=== PATIENT | male | born 1960 | race Caucasian/White ===

== ENCOUNTER → 2017-03-09 | Outpatient (REF) ==
[~2017-03-09] MED LIST: AMBIEN 10MG10 MG PO; BENADRYL50 MG PO; CEFTIN500 MG PO; CIPRO 500MG TA500 MG PO; COLACE 100100 MG/CAP PO; DIOVAN320 MG PO; FLEXERIL 1010 MG/TAB PO; FLOMAX 0.40.4 MG/CAP; GLUCOPHAGE500 MG/TAB PO; LAMICTAL XR200 MG PO; MIRALAX119G PO; NAPROSYN500 MG PO; NIASPAN1000 MG PO; NORCO 325 MG-51 TAB PO; PERCOCET 325 MG1 TA2 PO; PYRIDIUM 100MG100 MG PO; ULTRAM 50MG TAB50 MG PO; VITAMIN B122500 MCG SL; VITAMIN D 1001000 IU PO
[2017-03-09 20:03] LABS: PSA-TOTAL 6.54 ng/mL (0-4); THYROID STIMULATING HORMONE 2.24 uIU/mL (0.465-4.680)
== END ==
LOC: ZLAB.WCH 18:34
PROVIDERS: Internal Medicine
DX: Z01.89 Encounter for other specified special examinations (principal)
CPT/HCPCS: G0103

== ENCOUNTER → 2017-11-12 | Outpatient (REF) | LOC: ZLAB.WCH 14:17 | DX: Z01.89 Encounter for other specified special examinations (principal) | CPT/HCPCS: G0103 ==

== ENCOUNTER → 2017-11-15 | Outpatient (REF) | LOC: ZLAB.WCH 15:58 | DX: Z01.89 Encounter for other specified special examinations (principal) ==

== ENCOUNTER 2018-03-15 12:10 | Day surgery (SDC) | payer MEDICAID ==
[~2018-03-15] VITALS: Ht 190.5 cm; Wt 198.4 kg
[2018-03-15 12:59] VITALS: BP 152/85; PULSE 70; TEMP 98.5
[2018-03-15] MEDS ORDERED: FLOMAX 0.40.4 MG/CAP PO (13:09)
[2018-03-15] MEDS ORDERED: MELATONIN5 M1 SL (13:10)
[2018-03-15 15:40] VITALS: BP 119/66; PULSE 56; TEMP 97.5
[2018-03-15 15:43] VITALS: TEMP 97.5
[2018-03-15 15:55] VITALS: BP 118/71; PULSE 69
[2018-03-15 16:10] VITALS: BP 113/69; PULSE 57
== END 2018-03-15 16:38 | disposition home or self-care (01) ==
LOC: SDCO 12:10
DX: N20.0 Calculus of kidney (principal); Z87.442 Personal history of urinary calculi; R35.1 Nocturia; E11.9 Type 2 diabetes mellitus without complications; Z87.891 Personal history of nicotine dependence; G47.33 Obstructive sleep apnea (adult) (pediatric); I10 Essential (primary) hypertension; N41.9 Inflammatory disease of prostate, unspecified
CPT/HCPCS: C1769; C2617; J0330; J0690; J1100; J1885; J2405; J2704; J2765; J3010; J7120; Q9967

== ENCOUNTER → 2018-07-26 | Outpatient (REF) ==
[~2018-07-26] MED LIST changes: +FLOMAX 0.40.4 MG/CAP PO; +MELATONIN5 M1 SL
== END ==
LOC: ZLAB.WCH 17:08
DX: Z01.89 Encounter for other specified special examinations (principal)

== ENCOUNTER 2019-11-16 09:35 | Emergency (ER) | payer MEDICAID ==
[~2019-11-16] VITALS: Ht 190.5 cm; Wt 193.2 kg
[2019-11-16 09:57] VITALS: TEMP 98.3
[2019-11-16 10:52] LABS: BASO # 0.1 (0.0-0.2); BASO % 0.6 % (0.0-2.0); EOS # 0.1 (0.0-0.7); EOS % 1.1 % (0-4.0); GRAN # 5.6 (1.4-6.5); GRAN % 71.7 % (42.2-75.2); HEMATOCRIT 47.8 % (42.0-52.0); HEMOGLOBIN 15.9 g/dl (13.5-18.0); LYMPH # 1.4 (1.2-3.4); LYMPH % 18.1 % (20.0-51.0); MEAN CELL VOLUME 92 fl (80.0-100.0); MEAN CORPUSCULAR HEMOGLOBIN 31 pg (27.0-31.0); MEAN CORPUSCULAR HGB CONC 33 g/dl (33.0-37.0); MEAN PLATELET VOLUME 9.5 fl (7.4-10.4); MONO # 0.6 (0.1-0.6); MONO % 8.1 % (1.7-9.3); PLATELET COUNT 147 K/mm3 (130-400); REDCELL DISTRIBUTION WIDTH-CV 13.5 % (11.5-14.5)
[2019-11-16 11:07] LABS: BILIRUBIN,TOTAL 1.7 mg/dL (0.0-1.0); C-REACTIVE PROTEIN 1.3 mg/dL (0.0-0.9); CALCIUM 9.5 mg/dL (8.4-10.2); CREATININE, serum 0.96 (0.66-1.25); POTASSIUM 4.4 mmol/L (3.4-5.0); TOTAL PROTEIN 7.5 gm/dL (6.4-8.2)
[2019-11-16] MEDS ORDERED: DOXYCYCLINE 10100 MG PO (11:53)
[2019-11-16 12:10] VITALS: BP 133/79; PULSE 78
== END 2019-11-16 12:10 | disposition home or self-care (01) ==
LOC: COL.ER 09:35
PROVIDERS: Physician Assistant
DX: L03.115 Cellulitis of right lower limb (principal); F17.290 Nicotine dependence, other tobacco product, uncomplicated; Z87.442 Personal history of urinary calculi

== ENCOUNTER 2019-12-20 14:36 | Inpatient (IN) | payer MEDICAID ==
[~2019-12-20] VITALS: Ht 190.5 cm; Wt 208.1 kg
[~2019-12-20 14:36] MED LIST changes: +DOXYCYCLINE 10100 MG PO
[2019-12-20 15:36] LABS: BASO % 0.4 % (0.0-2.0); EOS % 0.2 % (0-4.0); GRAN # 8.1 (1.4-6.5); GRAN % 87.8 % (42.2-75.2); HEMATOCRIT 47.1 % (42.0-52.0); HEMOGLOBIN 15.6 g/dl (13.5-18.0); LYMPH # 0.6 (1.2-3.4); LYMPH % 6.1 % (20.0-51.0); MEAN CELL VOLUME 93 fl (80.0-100.0); MEAN CORPUSCULAR HEMOGLOBIN 31 pg (27.0-31.0); MEAN CORPUSCULAR HGB CONC 33 g/dl (33.0-37.0); MEAN PLATELET VOLUME 9.8 fl (7.4-10.4); MONO # 0.5 (0.1-0.6); PLATELET COUNT 131 K/mm3 (130-400); RED BLOOD COUNT 5.08 M/mm3 (4.20-5.60); REDCELL DISTRIBUTION WIDTH-CV 13.3 % (11.5-14.5)
[2019-12-20 15:44] LABS: COLLECTION METHOD CLEAN CATCH
[2019-12-20 15:49] LABS: ALBUMIN 3.7 gm/dL (3.5-5.0); BILIRUBIN,TOTAL 1.8 mg/dL (0.0-1.0); C-REACTIVE PROTEIN 4.1 mg/dL (0.0-0.9); CALCIUM 9.1 mg/dL (8.4-10.2); CREATININE, serum 1.33 (0.66-1.25); POTASSIUM 3.7 mmol/L (3.4-5.0); TOTAL PROTEIN 7.2 gm/dL (6.4-8.2)
[2019-12-20 15:53] LABS: BUDDING YEAST Present /hpf; MUCOUS Present /lpf; PH 9 (5-8); SQUAMOUS EPITHELIAL 0-2 /hpf; URINE APPEARANCE Cloudy; URINE BACTERIA Rare /hpf; URINE BILIRUBIN Negative (NEGATIVE); URINE BLOOD 1+ (NEGATIVE); URINE COLOR Yellow; URINE GLUCOSE Negative (NEGATIVE); URINE KETONE Negative (NEGATIVE); URINE LEUKOCYTE ESTERASE 3+ (NEGATIVE); URINE NITRATE Positive (NEGATIVE); URINE PROTEIN(semi-quant) Negative (NEGATIVE); URINE RBC 0-2 /hpf; URINE UROBILINOGEN Negative (NEGATIVE)
[2019-12-20] MEDS ORDERED: DEMADEX10 MG PO (17:43)
[2019-12-20 18:42] VITALS: BP 134/70; PULSE 99; TEMP 98.6
[2019-12-20] MEDS ORDERED: RESTORIL 1515 MG/CAP PO (18:49)
[2019-12-20] MEDS ORDERED: KLOR-CON M2020 MEQ PO (18:51)
[2019-12-20 19:18] VITALS: BP 125/52; PULSE 96; TEMP 100.2
[2019-12-21] VITALS (7 sets, daily range): BP systolic 114–145; BP diastolic 40–91; PULSE 74–95; TEMP 97.9–98.8
[2019-12-21 07:29] LABS: ALBUMIN 3.2 gm/dL (3.5-5.0); BILIRUBIN,TOTAL 1.1 mg/dL (0.0-1.0); CALCIUM 8.8 mg/dL (8.4-10.2); CREATININE, serum 1.19 (0.66-1.25); POTASSIUM 3.8 mmol/L (3.4-5.0); TOTAL PROTEIN 6.6 gm/dL (6.4-8.2)
[2019-12-21 07:44] LABS: BASO % 0.5 % (0.0-2.0); EOS % 0.3 % (0-4.0); GRAN # 4.9 (1.4-6.5); GRAN % 77.2 % (42.2-75.2); HEMOGLOBIN 14.9 g/dl (13.5-18.0); LYMPH # 0.7 (1.2-3.4); LYMPH % 11.6 % (20.0-51.0); MEAN CELL VOLUME 92 fl (80.0-100.0); MEAN CORPUSCULAR HEMOGLOBIN 31 pg (27.0-31.0); MEAN CORPUSCULAR HGB CONC 33 g/dl (33.0-37.0); MEAN PLATELET VOLUME 10.2 fl (7.4-10.4); MONO # 0.6 (0.1-0.6); MONO % 10.1 % (1.7-9.3); PLATELET COUNT 111 K/mm3 (130-400); RED BLOOD COUNT 4.88 M/mm3 (4.20-5.60); REDCELL DISTRIBUTION WIDTH-CV 13.4 % (11.5-14.5)
[2019-12-21 16:02] LABS: COLLECTION METHOD CLEAN CATCH
[2019-12-21 16:11] LABS: BUDDING YEAST Present /hpf; PH 7 (5-8); SQUAMOUS EPITHELIAL 0-2 /hpf; URINE APPEARANCE Cloudy; URINE BACTERIA Rare /hpf; URINE BILIRUBIN Negative (NEGATIVE); URINE BLOOD 1+ (NEGATIVE); URINE COLOR Yellow; URINE GLUCOSE Negative (NEGATIVE); URINE KETONE Negative (NEGATIVE); URINE LEUKOCYTE ESTERASE 3+ (NEGATIVE); URINE NITRATE Negative (NEGATIVE); URINE PROTEIN(semi-quant) Negative (NEGATIVE); URINE UROBILINOGEN Negative (NEGATIVE)
[2019-12-21 23:46] LABS: PARTIAL THROMBOPLASTIN TIME 31.2 SECONDS (26.0-37.0)
[2019-12-22 03:23] VITALS: BP 138/69; PULSE 80; TEMP 98.5
[2019-12-22 07:27] VITALS: BP 139/74; PULSE 72; TEMP 98.2
[2019-12-22 07:40] LABS: BASO % 0.4 % (0.0-2.0); EOS # 0.2 (0.0-0.7); EOS % 1.8 % (0-4.0); GRAN % 72.8 % (42.2-75.2); HEMATOCRIT 43.8 % (42.0-52.0); HEMOGLOBIN 14.6 g/dl (13.5-18.0); LYMPH # 1.2 (1.2-3.4); LYMPH % 14.9 % (20.0-51.0); MEAN CELL VOLUME 91 fl (80.0-100.0); MEAN CORPUSCULAR HEMOGLOBIN 31 pg (27.0-31.0); MEAN CORPUSCULAR HGB CONC 33 g/dl (33.0-37.0); MONO # 0.8 (0.1-0.6); MONO % 9.9 % (1.7-9.3); PLATELET COUNT 110 K/mm3 (130-400); RED BLOOD COUNT 4.79 M/mm3 (4.20-5.60); REDCELL DISTRIBUTION WIDTH-CV 13.2 % (11.5-14.5)
[2019-12-22 07:48] LABS: CALCIUM 8.9 mg/dL (8.4-10.2); CREATININE, serum 0.95 (0.66-1.25); INR 1.2 (0.8-3.0); POTASSIUM 3.9 mmol/L (3.4-5.0); PROTHROMBIN TIME 13.4 SECONDS (9.7-12.8)
[2019-12-22 11:23] VITALS: BP 117/82; PULSE 77; TEMP 98.4
[2019-12-22 16:54] VITALS: BP 138/76; PULSE 74; TEMP 97.7
[2019-12-22 21:17] VITALS: BP 140/83; PULSE 80; TEMP 98
[2019-12-23 01:32] VITALS: BP 144/89; PULSE 87; TEMP 97.5
[2019-12-23 04:58] VITALS: BP 133/81; PULSE 70; TEMP 97.6
[2019-12-23 06:57] LABS: BASO % 0.5 % (0.0-2.0); EOS # 0.2 (0.0-0.7); EOS % 2.9 % (0-4.0); GRAN % 63.9 % (42.2-75.2); HEMATOCRIT 45.2 % (42.0-52.0); HEMOGLOBIN 14.8 g/dl (13.5-18.0); LYMPH # 1.4 (1.2-3.4); LYMPH % 21.7 % (20.0-51.0); MEAN CELL VOLUME 93 fl (80.0-100.0); MEAN CORPUSCULAR HEMOGLOBIN 30 pg (27.0-31.0); MEAN CORPUSCULAR HGB CONC 33 g/dl (33.0-37.0); MEAN PLATELET VOLUME 10.1 fl (7.4-10.4); MONO # 0.7 (0.1-0.6); MONO % 10.7 % (1.7-9.3); PLATELET COUNT 120 K/mm3 (130-400); RED BLOOD COUNT 4.87 M/mm3 (4.20-5.60); REDCELL DISTRIBUTION WIDTH-CV 13.3 % (11.5-14.5)
[2019-12-23 07:12] LABS: ALBUMIN 3.5 gm/dL (3.5-5.0); BILIRUBIN,TOTAL 0.6 mg/dL (0.0-1.0); CALCIUM 9.1 mg/dL (8.4-10.2); CREATININE, serum 1.01 (0.66-1.25); POTASSIUM 4.1 mmol/L (3.4-5.0); TOTAL PROTEIN 7.1 gm/dL (6.4-8.2)
[2019-12-23 07:14] LABS: INR 1.2 (0.8-3.0)
[2019-12-23 07:27] VITALS: BP 128/77; PULSE 68; TEMP 97.6
[2019-12-23 11:53] VITALS: BP 135/75; PULSE 69; TEMP 98
[2019-12-23 17:10] VITALS: BP 122/74; PULSE 73; TEMP 97.8
[2019-12-23 20:00] VITALS: BP 130/64; PULSE 74; TEMP 98.4
[2019-12-24] VITALS (7 sets, daily range): BP systolic 123–150; BP diastolic 53–79; PULSE 62–83; TEMP 97.5–98.4
[2019-12-24 07:43] LABS: INR 1.2 (0.8-3.0); PROTHROMBIN TIME 13.7 SECONDS (9.7-12.8)
[2019-12-25 03:05] VITALS: BP 134/76; PULSE 78; TEMP 98
[2019-12-25 07:07] VITALS: BP 118/72; PULSE 88; TEMP 98.4
[2019-12-25 07:10] LABS: BASO # 0.1 (0.0-0.2); BASO % 0.6 % (0.0-2.0); EOS # 0.2 (0.0-0.7); EOS % 2.7 % (0-4.0); GRAN # 5.3 (1.4-6.5); GRAN % 63.4 % (42.2-75.2); HEMATOCRIT 46.4 % (42.0-52.0); HEMOGLOBIN 15.4 g/dl (13.5-18.0); LYMPH # 1.9 (1.2-3.4); LYMPH % 22.8 % (20.0-51.0); MEAN CELL VOLUME 94 fl (80.0-100.0); MEAN CORPUSCULAR HEMOGLOBIN 31 pg (27.0-31.0); MEAN CORPUSCULAR HGB CONC 33 g/dl (33.0-37.0); MEAN PLATELET VOLUME 10.3 fl (7.4-10.4); MONO # 0.8 (0.1-0.6); MONO % 9.7 % (1.7-9.3); PLATELET COUNT 173 K/mm3 (130-400); RED BLOOD COUNT 4.96 M/mm3 (4.20-5.60); REDCELL DISTRIBUTION WIDTH-CV 13.6 % (11.5-14.5)
[2019-12-25 07:19] LABS: INR 1.6 (0.8-3.0); PROTHROMBIN TIME 17.8 SECONDS (9.7-12.8)
[2019-12-25 07:26] LABS: CALCIUM 9.3 mg/dL (8.4-10.2); CREATININE, serum 1.32 (0.66-1.25); POTASSIUM 3.9 mmol/L (3.4-5.0)
[2019-12-25 11:30] VITALS: BP 123/67; PULSE 84; TEMP 98.4
[2019-12-25 16:41] VITALS: BP 140/74; PULSE 69; TEMP 98.2
[2019-12-25 20:09] VITALS: BP 120/54; PULSE 76; TEMP 98.6
[2019-12-25 23:11] VITALS: BP 124/57; PULSE 65; TEMP 97.7
[2019-12-26 04:13] VITALS: BP 121/55; PULSE 70; TEMP 97.6
[2019-12-26 06:08] LABS: BASO # 0.1 (0.0-0.2); BASO % 0.6 % (0.0-2.0); EOS # 0.2 (0.0-0.7); EOS % 2.6 % (0-4.0); GRAN # 5.6 (1.4-6.5); GRAN % 65.6 % (42.2-75.2); HEMATOCRIT 46.5 % (42.0-52.0); HEMOGLOBIN 15.4 g/dl (13.5-18.0); LYMPH # 1.9 (1.2-3.4); LYMPH % 21.6 % (20.0-51.0); MEAN CELL VOLUME 93 fl (80.0-100.0); MEAN CORPUSCULAR HEMOGLOBIN 31 pg (27.0-31.0); MEAN CORPUSCULAR HGB CONC 33 g/dl (33.0-37.0); MEAN PLATELET VOLUME 9.9 fl (7.4-10.4); MONO # 0.8 (0.1-0.6); MONO % 9.1 % (1.7-9.3); PLATELET COUNT 162 K/mm3 (130-400); RED BLOOD COUNT 4.98 M/mm3 (4.20-5.60); REDCELL DISTRIBUTION WIDTH-CV 13.7 % (11.5-14.5)
[2019-12-26 06:11] LABS: INR 2.2 (0.8-3.0); PROTHROMBIN TIME 24.4 SECONDS (9.7-12.8)
[2019-12-26 06:15] LABS: CALCIUM 9.4 mg/dL (8.4-10.2); CREATININE, serum 1.15 (0.66-1.25); POTASSIUM 4.5 mmol/L (3.4-5.0)
[2019-12-26 07:38] VITALS: BP 135/76; PULSE 66; TEMP 97.9
[2019-12-26 11:47] VITALS: BP 143/74; PULSE 87; TEMP 98
[2019-12-26 16:32] VITALS: BP 153/78; PULSE 79; TEMP 97.7
[2019-12-26 19:47] VITALS: BP 108/57; PULSE 81; TEMP 98.5
[2019-12-26 20:25] LABS: COLLECTION METHOD CLEAN CATCH
[2019-12-26 20:32] LABS: PH 6 (5-8); SQUAMOUS EPITHELIAL 0-2 /hpf; URINE APPEARANCE Clear; URINE BACTERIA None Seen /hpf; URINE BILIRUBIN Negative (NEGATIVE); URINE BLOOD 2+ (NEGATIVE); URINE COLOR Straw; URINE GLUCOSE Negative (NEGATIVE); URINE KETONE Negative (NEGATIVE); URINE LEUKOCYTE ESTERASE Negative (NEGATIVE); URINE NITRATE Negative (NEGATIVE); URINE PROTEIN(semi-quant) Negative (NEGATIVE); URINE RBC >50 /hpf; URINE UROBILINOGEN Negative (NEGATIVE)
[2019-12-27 00:45] VITALS: BP 106/58; PULSE 70; TEMP 98
[2019-12-27 05:16] VITALS: BP 111/48; PULSE 65; TEMP 97.9
[2019-12-27 07:03] LABS: INR 2.4 (0.8-3.0); PROTHROMBIN TIME 27.6 SECONDS (9.7-12.8)
[2019-12-27 08:36] VITALS: BP 137/74; PULSE 73; TEMP 97.9
[2019-12-27] MEDS ORDERED: COUMADIN 5MG5 MG/TAB PO (12:53)
[2019-12-27] MEDS ORDERED: Desenex/Lotrimin AF TP (12:53)
[2019-12-27] MEDS ORDERED: DEMADEX10 MG PO (12:53)
[2019-12-27] MEDS ORDERED: RESTORIL 1515 MG/CAP PO (12:54)
[2019-12-27] MEDS ORDERED: OMNICEF 300MG300 MG PO (12:55)
[2019-12-27] MEDS ORDERED: DIFLUCAN200 MG PO (12:55)
[2019-12-27 13:02] VITALS: BP 146/83; PULSE 78; TEMP 97.8
== END 2019-12-27 15:35 | disposition home or self-care (01) | DRG 872 ==
LOC: COL.ER 14:36 → MEDICAL 17:03
PROVIDERS: Emergency Medicine; Internal Medicine; Physician Assistant; ADMIT Student in an Organized Health Care Education/Training Program
DX: A41.89 Other specified sepsis (principal); N39.0 Urinary tract infection, site not specified; I82.401 Acute embolism and thrombosis of unspecified deep veins of right lower extremity; Z68.43 Body mass index [BMI] 50.0-59.9, adult; N18.9 Chronic kidney disease, unspecified; B96.89 Other specified bacterial agents as the cause of diseases classified elsewhere; E66.01 Morbid (severe) obesity due to excess calories; K80.20 Calculus of gallbladder without cholecystitis without obstruction; E80.6 Other disorders of bilirubin metabolism; F17.210 Nicotine dependence, cigarettes, uncomplicated; F31.9 Bipolar disorder, unspecified; I12.9 Hypertensive chronic kidney disease with stage 1 through stage 4 chronic kidney disease, or unspecified chronic kidney disease; D69.6 Thrombocytopenia, unspecified; N20.0 Calculus of kidney; R65.20 Severe sepsis without septic shock
CPT/HCPCS: 99222-AI; 99231-AI; 99232-AI; 99233-AI; 99239; J0696; J1644; J7030; Q9967

== ENCOUNTER → 2020-11-25 | Outpatient (CLI) | payer MEDICAID ==
[~2020-11-25] MED LIST changes: +COUMADIN 5MG5 MG/TAB PO; +DEMADEX10 MG PO; +DESENEX TP; +DIFLUCAN200 MG PO; +Desenex/Lotrimin AF TP; +KLOR-CON M2020 MEQ PO; +LEVAQUIN 5500 MG/TA1 PO; +OMNICEF 300MG300 MG PO; +PROAIR HFA0.09 MG/AC IH; +RESTORIL 1515 MG/CAP PO
== END ==
LOC: COL.RAD 13:39
DX: N18.30 Chronic kidney disease, stage 3 unspecified (principal); N32.89 Other specified disorders of bladder

== ENCOUNTER → 2020-12-06 | Outpatient (CLI) | payer MEDICAID | LOC: COL.VAS 11:23 | DX: R09.89 Other specified symptoms and signs involving the circulatory and respiratory systems (principal) ==

== ENCOUNTER 2020-12-27 07:10 | Day surgery (SDC) | payer MEDICAID ==
[~2020-12-27] VITALS: Ht 190.5 cm; Wt 207.6 kg
[~2020-12-27 07:10] MED LIST changes: -DESENEX TP; -LEVAQUIN 5500 MG/TA1 PO; -PROAIR HFA0.09 MG/AC IH
[2020-12-27] MEDS ORDERED: LEVAQUIN 5500 MG/TA1 PO (08:17)
[2020-12-27] MEDS ORDERED: PROAIR HFA0.09 MG/AC IH (08:17)
[2020-12-27 08:18] VITALS: BP 153/95; PULSE 101; TEMP 98.4
[2020-12-27 10:30] VITALS: BP 133/82; PULSE 82; TEMP 97.4
--- NOTE | 2020-12-27 10:30 | NUR ---
Patient arrives to [facility] via cart, accompanied by DATA SUPPORT SPECIALIST Salena. He is alert and oriented, sitting up in bed. PIV to TKO. Monitoring is applied - VSS and WNL on room air. He denies any pain or nausea. He is offered and receives juice and a muffin to eat.
[2020-12-27 10:45] VITALS: BP 131/70; PULSE 85
--- NOTE | 2020-12-27 10:45 | NUR ---
VSS on room air. Denies pain, nausea, or need. Has ate his muffin and drank his juice. Tolerating PO well.
--- NOTE | 2020-12-27 11:00 | NUR ---
Patient ambulates to the restroom with use of personal walker. Gait steady. Voids and returns to room.
[2020-12-27 11:02] VITALS: TEMP 98.2
[2020-12-27 11:10] VITALS: BP 154/80; PULSE 87
--- NOTE | 2020-12-27 11:10 | NUR ---
Patient is resting comfortably in room. VSS on room air. He has met discharge criteria. Will return with paperwork.
--- NOTE | 2020-12-27 11:38 | NUR ---
Patient has met discharge criteria. Discharge instructions are discussed. He denies any questions and verbalizes understanding. PIV is removed with catheter intact and hemostasis achieved. Patient changes to his clothing independently. He is escorted to the exit via wheelchair, where the van service meets him for a ride home. He is discharged to home at 1138.
== END 2020-12-27 11:38 | disposition home or self-care (01) ==
LOC: SDCO 07:10
DX: N20.2 Calculus of kidney with calculus of ureter (principal); R97.20 Elevated prostate specific antigen [PSA]; J45.909 Unspecified asthma, uncomplicated; N18.30 Chronic kidney disease, stage 3 unspecified; E11.22 Type 2 diabetes mellitus with diabetic chronic kidney disease; I12.9 Hypertensive chronic kidney disease with stage 1 through stage 4 chronic kidney disease, or unspecified chronic kidney disease; G47.10 Hypersomnia, unspecified; G47.33 Obstructive sleep apnea (adult) (pediatric); E11.42 Type 2 diabetes mellitus with diabetic polyneuropathy; I87.2 Venous insufficiency (chronic) (peripheral); M17.0 Bilateral primary osteoarthritis of knee; E66.9 Obesity, unspecified; E88.81 Metabolic syndrome and other insulin resistance; M54.9 Dorsalgia, unspecified; G89.29 Other chronic pain; E55.9 Vitamin D deficiency, unspecified; Z79.899 Other long term (current) drug therapy; Z68.43 Body mass index [BMI] 50.0-59.9, adult; Z87.891 Personal history of nicotine dependence
CPT/HCPCS: C1769; C2617; J0690; J1100; J2405; J2704; J3010; J7120; Q9967

== ENCOUNTER 2021-01-07 11:54 | Day surgery (SDC) | payer MEDICAID ==
[~2021-01-07] VITALS: Ht 190.5 cm; Wt 206.5 kg
[~2021-01-07 11:54] MED LIST changes: +LEVAQUIN 5500 MG/TA1 PO; +PROAIR HFA0.09 MG/AC IH
[2021-01-07 12:48] VITALS: BP 137/70; PULSE 104; TEMP 98.3
[2021-01-07] MEDS ORDERED: RESTORIL 1515 MG/CAP PO (12:57)
[2021-01-07] MEDS ORDERED: DEMADEX10 MG PO (12:58)
[2021-01-07] MEDS ORDERED: NORCO 325 MG-51 TAB PO (13:00)
--- NOTE | 2021-01-07 13:00 | NUR ---
TO RM AT 1211- CALL LIGHT IN REACH WILL CALL FOR RIDE HOME
--- NOTE | 2021-01-07 13:18 | NUR ---
DR KNUTSON INTO SEE PATIENT
--- NOTE | 2021-01-07 14:45 | NUR ---
PATIENT GETTING DRESSED.
--- NOTE | 2021-01-07 15:06 | NUR ---
DISCHARGED PER WC BY NURSING STAFF TO PRIVATE CAR IN CARE OF ANTONI PATEL.
== END 2021-01-07 15:11 | disposition home or self-care (01) ==
LOC: SDCO 11:54
DX: N20.1 Calculus of ureter (principal); J45.909 Unspecified asthma, uncomplicated; G89.29 Other chronic pain; M54.9 Dorsalgia, unspecified; I12.9 Hypertensive chronic kidney disease with stage 1 through stage 4 chronic kidney disease, or unspecified chronic kidney disease; E11.22 Type 2 diabetes mellitus with diabetic chronic kidney disease; N18.30 Chronic kidney disease, stage 3 unspecified; G47.33 Obstructive sleep apnea (adult) (pediatric); E11.42 Type 2 diabetes mellitus with diabetic polyneuropathy; Z79.4 Long term (current) use of insulin; Z79.899 Other long term (current) drug therapy

== ENCOUNTER 2021-06-09 15:15 | Inpatient (IN) | payer MEDICAID ==
[~2021-06-09] VITALS: Ht 190.5 cm; Wt 214.5 kg
[2021-06-09 15:49] LABS: COLLECTION METHOD CLEAN CATCH
[2021-06-09 16:03] LABS: PH 7 (5-8); SQUAMOUS EPITHELIAL None Seen /hpf (0-10); URINE APPEARANCE Cloudy (CLEAR/HAZY); URINE BACTERIA Rare (NONE SEEN); URINE BILIRUBIN Negative (NEGATIVE); URINE BLOOD 1+ (NEGATIVE); URINE COLOR Yellow (YELLOW); URINE GLUCOSE Negative (NEGATIVE); URINE KETONE Negative (NEGATIVE); URINE LEUKOCYTE ESTERASE 3+ (NEGATIVE); URINE NITRATE Negative (NEGATIVE); URINE PROTEIN(semi-quant) 1+ (NEGATIVE); URINE UROBILINOGEN Negative (NEGATIVE)
[2021-06-09 16:11] LABS: BASO % 0.4 % (0.0-2.0); EOS # 0.2 K/mm3 (0.0-0.7); EOS % 1.8 % (0-4.0); GRAN # 7.4 K/mm3 (1.4-6.5); GRAN % 67.4 % (42.2-75.2); HEMOGLOBIN 11.8 g/dl (13.5-18.0); LYMPH # 2.5 K/mm3 (1.2-3.4); LYMPH % 22.5 % (20.0-51.0); MEAN CELL VOLUME 92 fl (80.0-100.0); MEAN CORPUSCULAR HEMOGLOBIN 30 pg (27.0-31.0); MEAN CORPUSCULAR HGB CONC 33 g/dl (33.0-37.0); MEAN PLATELET VOLUME 9.2 fl (7.4-10.4); MONO # 0.8 K/mm3 (0.1-0.6); MONO % 7.2 % (1.7-9.3); PLATELET COUNT 177 K/mm3 (130-400); RED BLOOD COUNT 3.88 M/mm3 (4.20-5.60); REDCELL DISTRIBUTION WIDTH-CV 14.6 % (11.5-14.5)
[2021-06-09 16:12] LABS: HEMATOCRIT 35.8 % (42.0-52.0)
[2021-06-09 16:30] LABS: ALBUMIN 3.8 gm/dL (3.4-4.8); CALCIUM 9.9 mg/dL (8.4-10.2); CREATININE, serum 3.77 mg/dL (0.72-1.25); POTASSIUM 5.5 mmol/L (3.5-4.5); TOTAL PROTEIN 8.2 gm/dL (6.2-8.1)
[2021-06-09 16:35] LABS: TROPONIN-I 0.012 ng/mL (0.00-0.033)
[2021-06-09] MEDS ORDERED: FLOMAX 0.40.4 MG/CAP PO (18:56)
--- NOTE | 2021-06-09 21:17 | NUR ---
PT STATED THAT HE HAS A HISTORY OF MANIC BIPOLOAR DISORDER THAT HAD PREVIOUS SUICIDE ATTEMPT FROM 1991. PT IS NO LONGER ON MEDICATIONS AND HAS BEEN STABILIZED. PT STATED WAS ADDICTED TO [facility] YEARS AGO AND IS A RECOVERING ADDICT. PT IS OK WITH RECEIVED PAIN MEDICATIONS HE DOES NOT FEAR THAT WILL MESS WITH HIS RECOVERY.
[2021-06-09 21:22] VITALS: BP 164/90; PULSE 102; TEMP 98.5
[2021-06-10] VITALS (7 sets, daily range): BP systolic 114–151; BP diastolic 54–73; PULSE 80–110; TEMP 97.7–98.2
--- NOTE | 2021-06-10 01:42 | NUR ---
PT COMPLAINED OF WET BED, THIS RN AND AIDE CHANGED LINENS. LOOKED AT BROTHERS, NOTICED ABOUT 1 CM BLOOD CLOT. THIS RN CALLED DEDRA WHO STATED TO DO SOME MANUAL IRRIGATION TO ENSURE NO FURTHER BLOOD CLOTS AND ASKED IF PT WAS IN ANY PAIN, THIS RN STATED PT IS DENYING PAIN.
--- NOTE | 2021-06-10 02:09 | NUR ---
IRRIGATED BROTHERS. GOT 1500 ML OF URINE IN RETURN. NO FURTHER BLOOD CLOTS. URINE IS A DARK YELLOW WITH SOME SEDIMENT IN URINE. THIS RN TRIED TO POSITION PT TO OPTIMIZE BEST FLOW.
[2021-06-10 06:52] LABS: BASO % 0.3 % (0.0-2.0); EOS # 0.1 K/mm3 (0.0-0.7); EOS % 1.1 % (0-4.0); GRAN # 8.3 K/mm3 (1.4-6.5); GRAN % 73.1 % (42.2-75.2); HEMOGLOBIN 10.8 g/dl (13.5-18.0); LYMPH # 2.1 K/mm3 (1.2-3.4); LYMPH % 18.7 % (20.0-51.0); MEAN CELL VOLUME 93 fl (80.0-100.0); MEAN CORPUSCULAR HEMOGLOBIN 31 pg (27.0-31.0); MEAN CORPUSCULAR HGB CONC 33 g/dl (33.0-37.0); MEAN PLATELET VOLUME 9.8 fl (7.4-10.4); MONO # 0.7 K/mm3 (0.1-0.6); MONO % 6.3 % (1.7-9.3); PLATELET COUNT 164 K/mm3 (130-400); RED BLOOD COUNT 3.51 M/mm3 (4.20-5.60); REDCELL DISTRIBUTION WIDTH-CV 14.5 % (11.5-14.5)
[2021-06-10 06:58] LABS: HEMATOCRIT 32.8 % (42.0-52.0)
[2021-06-10 07:10] LABS: CALCIUM 9.6 mg/dL (8.4-10.2); CREATININE, serum 3.66 mg/dL (0.72-1.25); POTASSIUM 5.3 mmol/L (3.5-4.5)
[2021-06-10 08:09] LABS: CREATININE, serum 3.66 mg/dL (0.72-1.25); FRACTIONAL EXCRETION OF NA+ 7.7 %
--- NOTE | 2021-06-10 08:15 | NUR ---
Patient resting in bed. He is NPO. Patient provided with mouth swabs for comfort. He took flomax with small sip of water. Mendoza to DD with red tinged output, sediment noted. Patient reports his pain comes and goes, he does have chronic knee pain, offered ice pack & elevation. he was not interested. He is awaiting plan of care. Will monitor.
--- NOTE | 2021-06-10 11:50 | NUR ---
MARIBEL met with the patient to discuss discharge plan. The patient lives alone in [place]. He reports independence with ADLs and has a rollator and cane. He states that he has a field care coordinator from [address] [place] [address] and was approved seven hours a week. The patient's PCP is Dr. Case Flores and he receives his medications from [facility]. He reports no difficulties obtaining his meds. The patient does not have a DPOA-HC, but he was interested in completing one while here. MARIBEL provided the form. The patient designated his brother, Taco Ballesteros (ph#[phone]), and his friend, Abby Parada, as the alternate. Taco lives in [place]. MARIBEL and BRYANNA Rae, witnessed the patient's signature. MARIBEL provided the patient with the original and some copies. MARIBEL placed a copy in the patient's chart. The patient plans to return home upon discharge. He states that he will try and see if a neighbor can transport him home. If a neighbor cannot, he will need transport set up through his Medicaid or a taxi. SW to continue to follow. *Discharge plan: home*
--- NOTE | 2021-06-10 13:27 | NUR ---
Patient up to the bathroom, no BM. bladder did spasm & his montana leaked. pericare provided. Spoke to Paula Holliday patient pannus irritated. orders obtained. patient brushed his teeth & assisted with hygiene & fresh linens
--- NOTE | 2021-06-10 15:20 | NUR ---
Mendoza cares given. Pannus cleansed & powered applied. Interdry cloth applied. Feet cleased & lotion applied to feet. Scds BLE. Bandaid was removed from Right foot scab noted to top of foot, patient reports this has been there for weeks.
--- NOTE | 2021-06-10 16:44 | NUR ---
Patient to the Or with Or staff. Security drove bed to the Or. Patient continues to have bladder spasms & pericare provided as needed. He has been NPO all day. Will await his return
[2021-06-11 03:37] VITALS: BP 126/69; PULSE 110; TEMP 97.8
[2021-06-11 06:52] LABS: HEMOGLOBIN 10.5 g/dl (13.5-18.0); MEAN CELL VOLUME 93 fl (80.0-100.0); MEAN CORPUSCULAR HEMOGLOBIN 31 pg (27.0-31.0); MEAN CORPUSCULAR HGB CONC 33 g/dl (33.0-37.0); MEAN PLATELET VOLUME 9.5 fl (7.4-10.4); PLATELET COUNT 160 K/mm3 (130-400); RED BLOOD COUNT 3.43 M/mm3 (4.20-5.60); REDCELL DISTRIBUTION WIDTH-CV 14.3 % (11.5-14.5)
[2021-06-11 07:03] LABS: HEMATOCRIT 31.9 % (42.0-52.0)
[2021-06-11 07:04] LABS: CALCIUM 9.3 mg/dL (8.4-10.2); CREATININE, serum 3.85 mg/dL (0.72-1.25); POTASSIUM 5.7 mmol/L (3.5-4.5)
[2021-06-11 07:35] VITALS: BP 125/68; PULSE 82; TEMP 97.8
--- NOTE | 2021-06-11 09:15 | NUR ---
PT RESTING IN BED. MORNING MEDICATIONS GIVEN. SHIFT ASSESSMENT COMPLETED. DENIES ANY NEEDS AT THIS TIME. URINE IS YELLOW WITH SOME CLOTS. WILL CONTINUE TO MONITOR.
--- NOTE | 2021-06-11 11:36 | NUR ---
First visit from the locomotive firer. No needs right now.
[2021-06-11 11:59] VITALS: BP 138/75; PULSE 87; TEMP 98.3
[2021-06-11 16:00] VITALS: BP 146/76; PULSE 81; TEMP 97.9
[2021-06-11 19:52] VITALS: BP 148/63; PULSE 76; TEMP 98.1
--- NOTE | 2021-06-11 20:02 | NUR ---
PT LAYING IN BED, DENYING PAIN. CALL LIGHT IN REACH. NO OTHER NEEDS AT THIS TIME.
--- NOTE | 2021-06-11 22:00 | NUR ---
PT ASSESSMENT COMPLETED. PT TOOK MEDICATION PRESCRIBED, PT IS PLEASANT AND COOPERATIVE. DENIES ANY PAIN. DRAINED 800 ML OUT OF BROTHERS. THIS RN DOCUMENTED. URINE ONLY HAD SLINT BLOOD TINGE, MOST YELLOW/ROBERT. ONE SMALL BLOOD CLOT NOTED. DESENEX APPLIED TO UNDER FOLD OF ABDOMEN. PT ASKED FOR ICE CREAM, INFORMED PT OF DAIRY PRODUCTS ARE HIGHER IN POTASSIUM AND UNABLE TO GIVE PT ANYTHING THAT IS HIGH IN POTASSIUM. PT VERBALIZED UNDERSTANDING. THIS RN GAVE PT JELLO AFTER CHECKING POTASSIUM LEVELS. THIS RN EXPLAINED THE DANGERS OF ELEVATED POTASSIUM LEVELS WITH THE HEART RHTHYMS. PT NOT FULLY UNDERSTAND DUE TO COMMENT "I HAVE HAD A HEART MURMUR SINCE I WAS A CHILD." PT VERBALIZED UNDERSTANDING OF A LOT OF THE DIET MODIFICATIONS THAT WILL NEED TO BE IMPLEMENTED. CALL LIGHT IN REACH, NO OTHER NEEDS AT THIS TIME.
[2021-06-12 00:33] VITALS: BP 149/68; PULSE 79; TEMP 97.6
[2021-06-12 04:00] VITALS: BP 143/63; PULSE 79; TEMP 97.5
--- NOTE | 2021-06-12 05:24 | NUR ---
PT HAD UNEVENTFUL NIGHT. PT DENIES ANY PAIN. THIS RN DRAINED APPROXIMATELY 1500 ML OF URINE FROM BROTHERS. LAST 750 ML WERE CLEAR YELLOW URINE WITH NO CLOTS NOTED. PT STATED STILL DID NOT HAVE BOWEL MOVEMENT.
[2021-06-12 07:01] LABS: BASO % 0.3 % (0.0-2.0); EOS # 0.1 K/mm3 (0.0-0.7); EOS % 1.2 % (0-4.0); GRAN # 8.8 K/mm3 (1.4-6.5); GRAN % 74.6 % (42.2-75.2); HEMOGLOBIN 10.3 g/dl (13.5-18.0); LYMPH # 1.9 K/mm3 (1.2-3.4); LYMPH % 16.4 % (20.0-51.0); MEAN CELL VOLUME 95 fl (80.0-100.0); MEAN CORPUSCULAR HEMOGLOBIN 30 pg (27.0-31.0); MEAN CORPUSCULAR HGB CONC 32 g/dl (33.0-37.0); MEAN PLATELET VOLUME 9.7 fl (7.4-10.4); MONO # 0.8 K/mm3 (0.1-0.6); MONO % 6.8 % (1.7-9.3); PLATELET COUNT 156 K/mm3 (130-400); REDCELL DISTRIBUTION WIDTH-CV 14.7 % (11.5-14.5)
[2021-06-12 07:05] LABS: HEMATOCRIT 32.2 % (42.0-52.0)
[2021-06-12 07:19] LABS: CALCIUM 8.8 mg/dL (8.4-10.2); CREATININE, serum 3.68 mg/dL (0.72-1.25); MAGNESIUM 1.7 mg/dL (1.6-2.6); POTASSIUM 4.6 mmol/L (3.5-4.5)
[2021-06-12 08:24] VITALS: BP 150/76; PULSE 66; TEMP 97.7
--- NOTE | 2021-06-12 10:03 | NUR ---
Scheduled medications given. Shift assessment preformed. Patient denies any pain, discomfort, or SOA. Mendoza catheter in place. No kinks in tubing, securement device in place. Urine red tinged with clots. BLE red and warm, no pain or tenderness noted. Scaling and flaking noted on BLE. Groin and abdominal folds are red. Area cleaned, dried, desenex powder applied, moisture wicking fabric in use. Patient A&O. VSS. Patient denies any further needs at this time. Call light in reach.
[2021-06-12] MEDS ORDERED: DESENEX TP (11:08)
[2021-06-12] MEDS ORDERED: OMNICEF 300MG300 MG PO (11:09)
[2021-06-12 12:30] VITALS: BP 142/66; PULSE 92; TEMP 97.9
[2021-06-12 15:48] VITALS: BP 147/63; PULSE 88; TEMP 98.4
--- NOTE | 2021-06-12 18:28 | NUR ---
Patient deemed fit for discharge. IV DC'd, catheter intact, no signs of phlebitis. Discharge education/instructions given. All questions answered. 24 hour urine collection discussed with patient. Patient denies any pain, discomfort, SOA, or further needs at this time. Mendoza DC's, balloon intact. Jennifer care given. VSS. Patient A&O. Patient escorted from the building via wheelchair by [facility] Staff. Go Van Go transporting home.
== END 2021-06-12 17:30 | disposition home health service (06) | DRG 660 ==
LOC: COL.ER 15:15 → MEDICAL 18:31
PROVIDERS: Emergency Medicine; Internal Medicine; Nurse Practitioner; Student in an Organized Health Care Education/Training Program; Urology; ADMIT Internal Medicine
PROC: 0T768DZ Dilation of Right Ureter with Intraluminal Device, Via Natural or Artificial Opening Endoscopic (ICD-10-PCS; principal; 2021-06-10 17:15)
PROC: 0T568ZZ Destruction of Right Ureter, Via Natural or Artificial Opening Endoscopic (ICD-10-PCS; 2021-06-10 17:15)
DX: N13.6 Pyonephrosis (principal); R65.10 Systemic inflammatory response syndrome (SIRS) of non-infectious origin without acute organ dysfunction; N20.1 Calculus of ureter; Z68.43 Body mass index [BMI] 50.0-59.9, adult; Z87.442 Personal history of urinary calculi; N17.9 Acute kidney failure, unspecified; E66.01 Morbid (severe) obesity due to excess calories; Z96.652 Presence of left artificial knee joint; E87.5 Hyperkalemia; N40.0 Benign prostatic hyperplasia without lower urinary tract symptoms; N18.9 Chronic kidney disease, unspecified; N26.1 Atrophy of kidney (terminal); Z87.891 Personal history of nicotine dependence; R31.9 Hematuria, unspecified; Z20.822 Contact with and (suspected) exposure to COVID-19
CPT/HCPCS: 99223-AI; 99232-AI; 99233-AI; 99239; C1769; C1894; C2617; J0696; J1100; J2405; J2704; J3010; J7030

== ENCOUNTER 2021-06-24 07:37 | Day surgery (SDC) | payer MEDICAID ==
[~2021-06-24] VITALS: Ht 190.5 cm; Wt 216.5 kg
[2021-06-24 08:31] VITALS: BP 118/57; PULSE 96; TEMP 97
--- NOTE | 2021-06-24 10:15 | NUR ---
Bedside cystoscopy and ureteral stent removed and patient tolerated the procedure well. Patient notified ride and dresses with minimal assist.
--- NOTE | 2021-06-24 10:26 | NUR ---
Dismissal instructions given and voices understanding of dismissal instructions and follow up in one year. Provided office number for questions and concerns.
== END 2021-06-24 10:26 | disposition home or self-care (01) ==
LOC: SDCO 07:37
DX: J45.909 Unspecified asthma, uncomplicated (principal); G89.29 Other chronic pain; M54.9 Dorsalgia, unspecified; E11.9 Type 2 diabetes mellitus without complications; N20.2 Calculus of kidney with calculus of ureter; N18.30 Chronic kidney disease, stage 3 unspecified; E11.22 Type 2 diabetes mellitus with diabetic chronic kidney disease; I12.9 Hypertensive chronic kidney disease with stage 1 through stage 4 chronic kidney disease, or unspecified chronic kidney disease; G47.10 Hypersomnia, unspecified; F32.9 Major depressive disorder, single episode, unspecified; R97.20 Elevated prostate specific antigen [PSA]; R35.1 Nocturia; R35.0 Frequency of micturition; R09.02 Hypoxemia; E88.81 Metabolic syndrome and other insulin resistance; G47.33 Obstructive sleep apnea (adult) (pediatric); M19.90 Unspecified osteoarthritis, unspecified site; E55.9 Vitamin D deficiency, unspecified; Z87.891 Personal history of nicotine dependence

== ENCOUNTER → 2021-06-24 | Outpatient (CLI) | payer MEDICAID ==
[~2021-06-24] MED LIST changes: +DESENEX TP
== END ==
LOC: COL.VAS 07:48
DX: R06.00 Dyspnea, unspecified (principal)

== ENCOUNTER 2022-09-29 14:42 | Inpatient (IN) | payer MEDICAID ==
[~2022-09-29] VITALS: Ht 190.5 cm; Wt 221.8 kg
[~2022-09-29 14:42] MED LIST changes: +ERGOCALCIFER50000 IU PO; +XYZAL5 MG PO
[2022-09-29] MEDS ORDERED: NORVASC 10MG10 MG PO (18:11)
[2022-09-29] MEDS ORDERED: AMOXICILLIN 8751 TAB PO (18:12)
[2022-09-29] MEDS ORDERED: BLUE-EMU LIDOC1 EACH TP (18:13)
[2022-09-29] MEDS ORDERED: MICATIN (18:15)
[2022-09-29] MEDS ORDERED: ZANAFLEX 4MG TAB4 MG PO (18:15)
[2022-09-29] MEDS ORDERED: ULTRAM 50MG TAB50 MG PO (18:16)
[2022-09-29] MEDS ORDERED: FLOMAX 0.40.4 MG/CAP PO (18:16)
[2022-09-29] MEDS ORDERED: RESTORIL 1515 MG/CAP PO (18:17)
[2022-09-29] MEDS ORDERED: ERGOCALCIFER50000 IU PO (18:18)
[2022-09-29 18:19] VITALS: BP 132/54; PULSE 98; TEMP 98.2
--- NOTE | 2022-09-29 18:37 | NUR ---
Pt arrived to unit via stretcher from [facility] at approx 1800. Transfer report from [facility] nursing was not received. Pt is a/o x 4. Mendoza cath present and patent to drainage w/ clear, yellow urine. Skin is intact. Pt has a closed wound to dorsal part of right foot that has been under the care of his PCP. Pt also has a closed wound to his left lopez that he states is from a brown recluse spider bite. Orientation provided to room/unit. Pt denies other needs. Denies valuables. Call light is in his reach.
--- NOTE | 2022-09-29 19:39 | NUR ---
RECEIVED CHANGE OF SHIFT REPORT FROM DAY SHIFT RN. PATIENT RESTING IN BARIBED, NO EXIT ALARM ON AVAILABLE ON BED, CALL LIGHT IN REACH.
--- NOTE | 2022-09-29 19:40 | NUR ---
REQUESTED AND GIVEN PAIN MEDS FOR COMPLAINTS OF CHRONIC BACK PAIN, REPORTING PAIN MUSCLE SPASMS.
[2022-09-30] VITALS (8 sets, daily range): BP systolic 80–152; BP diastolic 33–73; PULSE 92–98; TEMP 97.5–97.9
--- NOTE | 2022-09-30 07:19 | NUR ---
CHANGE OF SHIFT REPORT GIVEN TO DAY SHIFT BETO CLINTON.
--- NOTE | 2022-09-30 08:16 | NUR ---
Patient resting in bed. He has been alert & oriented. Repositioned in bed for comfort, with heavy assist. Lidocaine patches to Left hip. Mendoza cares & cleansed folds & desenex powder applied with interdry cloth. He did well with breakfast. Will monitor.
--- NOTE | 2022-09-30 09:34 | NUR ---
at bedside. Patient worked with therapy & had epsiode of hypotention. Bp low. Medication changes made. Patient encouraged to drink fluids, gatorade provided per provider request. Jj monitor closely.
--- NOTE | 2022-09-30 10:54 | NUR ---
Hospitalist made aware of consult. had spoken to Prisca. Bp remains stable at this time
--- NOTE | 2022-09-30 13:40 | NUR ---
Patient blood pressure stable at this time working with therapy. Patient back in bed resting at this time
--- NOTE | 2022-09-30 16:18 | NUR ---
Regulatory Affairs Spec met with Patient at bedside to conduct Care Managment Assessment and review treatment team notes. Patient verrified that he lives in [place] and is established with PCP. PAtient lives by himself, with family being out of state. PAtient states that his brother, farrukh P: [phone] is his best familial point of contact. Patient is covered by [facility]. Patient reports to have AD with his PCP. In review of treatment team notes SW briefed the process of evaluating treatment progress. As Patient had pending evaluations, SW briefed that a review of his treatment team note next week will provide a better understanding of progress for recovery.
--- NOTE | 2022-09-30 19:13 | NUR ---
Patient resting in bed. He reports knee pain and being stiff and sore this evening after therapy today. Ultram and tyelnol given for pain. Bedside report to Robyn to jatinder kumar
--- NOTE | 2022-09-30 21:20 | NUR ---
PATIENT IS RESTING IN BED.PATIENT IS AOX4.PATIENT DENIES PAIN.PATIENT TAKES PILLS WHOLE WITH NO TROUBLE.MICONAZOLE POWDER WAS APPLIED ON THE SKIN FOLDS.PATIENT HAS A BROTHERS DRAINING CLEAR YELLOW URINE.SAFETY MEASURESIN PLACE.NO OTHER NEEDS AT THIS TIME.
--- NOTE | 2022-10-01 05:14 | NUR ---
PATIENT SLEPT THROUGH THE NIGHT.NO PAIN REPORTED.BROTHERS CATHETER IN PLACE DRAINING URINE FREELY.SAFETY MEASURES IN PLACE.NO OTHER NEEDS AT THIS TIME.
[2022-10-01 05:46] VITALS: BP 146/71; PULSE 93; TEMP 97.6
[2022-10-01 07:26] VITALS: BP 143/61; PULSE 99; TEMP 97.7
--- NOTE | 2022-10-01 12:47 | NUR ---
Patient's brother, Rolf contacted this SW reguarding a family meeting with Patient and treatment team. Rolf scheduled Treatment Team Meeting at 1245 on 10-07-22.
--- NOTE | 2022-10-01 14:46 | NUR ---
Has lack of transportation kept you from medical appts, meetings, work, or from getting things needed for daily living? NO How often do you feel lonely or isolated from those around you? SOMETIMES Over the past 5 days, how much of the time has pain made it hard for you to sleep? FREQUENTLY Over the past 5 days, how often have you limited your participation in therapy due to pain? FREQUENTLY Over the past 5 days, how often have you limited your day-to-day activities because of pain? OCCASIONALLY Have you had 2 or more falls in the past year or any fall with an injury? NO Did you have major surgery during the 100 days prior to admission? NO
[2022-10-01 17:34] VITALS: BP 140/71; PULSE 89; TEMP 97.9
--- NOTE | 2022-10-01 17:36 | NUR ---
Shift summary: 2055-3320 Pt Ox4, denies having pain that requires pain Rx, refuses lidocaine patch as well. Pt continues to have +orthos, hypotensive upon standing with therapies, but did not lose balance or consciousness. Was able to get transferred safely into and did PT from there. Mendoza remains intact with pale yellow urine to dependant drainage bag, I/O 940/2275. Is given bed bath, abdomin and groin folds remain pink, no open areas noted. Applied powder and interdry to abdominal folds.
--- NOTE | 2022-10-01 21:00 | NUR ---
PT RESTING IN BARIATRIC AIR BED. SEE COMPLETED ASSESSMENT. DENIES PAIN AT THIS TIME. NO NEEDS. CALL LIGHT IN REACH. BED ALARM SET. CALL LIGHT IN REACH.
[2022-10-02 05:36] VITALS: BP 138/62; PULSE 84; TEMP 98.2
[2022-10-02 11:18] LABS: BASO % 0.6 % (0.0-2.0); EOS # 0.2 K/mm3 (0.0-0.7); EOS % 2.4 % (0.0-4.0); GRAN % 70.7 % (42.2-75.2); HEMOGLOBIN 11.6 g/dl (13.5-18.0); LYMPH # 1.3 K/mm3 (1.2-3.4); LYMPH % 17.7 % (20.0-51.0); MEAN CELL VOLUME 90 fl (80.0-100.0); MEAN CORPUSCULAR HEMOGLOBIN 29 pg (27-31); MEAN CORPUSCULAR HGB CONC 32 g/dl (33.0-37.0); MEAN PLATELET VOLUME 9.7 fl (7.4-10.4); MONO # 0.6 K/mm3 (0.1-0.6); MONO % 7.8 % (1.7-9.3); PLATELET COUNT 151 K/mm3 (130-400); RED BLOOD COUNT 4.02 M/mm3 (4.20-5.60); REDCELL DISTRIBUTION WIDTH-CV 13.6 % (11.5-14.5)
[2022-10-02 11:20] LABS: HEMATOCRIT 36.3 % (42.0-52.0)
[2022-10-02 11:31] LABS: CALCIUM 9.3 mg/dL (8.4-10.2); CREATININE, serum 3.49 mg/dL (0.72-1.25); POTASSIUM 4.1 mmol/L (3.5-4.5)
--- NOTE | 2022-10-02 14:08 | NUR ---
Admission QIM scores were reviewed by the team. Code of 1 chosen for rolling left to right was determined by team discussion to be the most usual performance before interventions for this patient during the assessment period. Code of 3 chosen for sit to lying was determined by team discussion to be the most usual performance before interventions for this patient during the assessment period. Code of 1 chosen for lying to sitting on side of bed was determined by team discussion to be the most usual performance before interventions for this patient during the assessment period. Code of 1 chosen for sit to stand was determined by team discussion to be the most usual performance for this patient during the discharge assessment period. Code of 1 chosen for chair/bed to chair transfer was determined by team discussion to be the most usual performance before interventions for this patient during the assessment period.--Pamela Son, PD
[2022-10-02 17:16] VITALS: BP 144/72; PULSE 86; TEMP 97.8
--- NOTE | 2022-10-02 18:23 | NUR ---
Shift summary 30-present: VSS, orthostatics improved. Pt reports feeling less dizzy upon standing. Labs collected, BUN and Creat improved from admit. Heparin started as VTE, d/c SCD's. Mendoza catheter remains with pale yellow urine to dependant drainage, I/O 1090ml/3900ml.
--- NOTE | 2022-10-02 20:00 | NUR ---
pt resting in bed. reports feeling tired today from physical therapy. montana to dd w clear yellow urine output. scaling and blistering present to ble, pt reports medial left ankle is due to spider bite. pt denies needs at this time. call light in reach.
[2022-10-03 06:01] VITALS: BP 110/58; PULSE 87; TEMP 97.6
--- NOTE | 2022-10-03 06:51 | NUR ---
Shift report received from night RN. Pt is awake and resting supine in bed. HOB elevated to approx 30 degrees. Mendoza cath patent to drainage. Denies pain or additional needs. Call light is in his reach.
--- NOTE | 2022-10-03 08:59 | NUR ---
Pt is off the unit for Pt.
--- NOTE | 2022-10-03 10:54 | NUR ---
Pt assisted w/ transfer back to bed. SBA to stand to FWW and pivot transfer to bed. 2 person asst to move BLE onto bed. Pt denies pain/discomfort at this time. Denies additional needs. Call light is in his reach.
--- NOTE | 2022-10-03 15:49 | NUR ---
Pt resting supine in bed. He reports low back pain at 5/10 and is requesting Tylenol. Pt refused Lidocaine patches this morning. Tylenol given per PRN order. Pt denies additional needs. Call light is in his reach.
[2022-10-03 17:05] VITALS: BP 139/59; PULSE 88; TEMP 98.4
[2022-10-04 05:58] VITALS: BP 114/48; PULSE 90; TEMP 98.3
--- NOTE | 2022-10-04 06:58 | NUR ---
Shift report received from warehouse supervisor 3rd shift RN.
--- NOTE | 2022-10-04 10:19 | NUR ---
Pt resting supine in bed. HOB slightly elevated. Pt eating a snack at his request. Mendoza patent to drainage with clear, yellow urine noted. He denies pain/discomfort. Denies other needs. Call light is in his reach.
[2022-10-04 16:47] VITALS: BP 123/57; PULSE 95; TEMP 98.8
--- NOTE | 2022-10-04 17:05 | NUR ---
Pt resting on right side in bed. He reports irritation to his scrotum and dry, cracked heels. Scrotum is red and tender; skin intact. He usually applies bag balm - will notify Dr. Sheriff for order. Barrier ointment applied. Will continue to monitor.
--- NOTE | 2022-10-04 20:00 | NUR ---
PT RESTING IN BARIACTRIC BED. HAVING LT HIP PAIN. REPOSITIONED. PROVIED SKIN CARE. GAVE TRAMADOL 25MG PO FOR LEVEL 5/10 PAIN. PT HAVING GOOD UO WITH CLEAR DILUTE YELLOW REURN FROM BROTHERS. CALL LIGHT IN REACH. BED ALARM SET.
[2022-10-05 05:32] VITALS: BP 128/60; PULSE 85; TEMP 98
[2022-10-05 07:34] LABS: CALCIUM 8.9 mg/dL (8.4-10.2); CREATININE, serum 3.26 mg/dL (0.72-1.25); POTASSIUM 4.3 mmol/L (3.5-4.5)
--- NOTE | 2022-10-05 17:04 | NUR ---
Histopathologist spoke with patient's brother, Taco and rescheduled family meeting for Wednesday at 1030. Taco will participate by phone.
[2022-10-05 17:53] VITALS: BP 160/49; PULSE 79; TEMP 98.2
--- NOTE | 2022-10-05 18:01 | NUR ---
Shift summary 30-present: Pt has positive orthos while working with therapy. Infuse 1L NS IV, pt encouraged to increase oral intake. I/O . Labs drawn this AM. Pt denies pain, refuses lidocaine patches but does request PO APAP for generalized aches from therapy. Abdominal and groin folds cleansed with warm water, apply miconozole powder and interdry. Apply bag balm to scrotum, although area does not appeart to be red, irritated or dry.
[2022-10-06 05:17] VITALS: BP 112/61; PULSE 94; TEMP 98.4
--- NOTE | 2022-10-06 06:50 | NUR ---
Shift report received from plant operator/shift supervisor RN.
--- NOTE | 2022-10-06 07:55 | NUR ---
Pt awake and resting supine in bed. He ate 100% of his breakfast independently. He reports that his right heel felt sore during the night. Pt agreeable to trying heel boots to elevate heels off the mattress. He otherwise denies pain/discomfort. Wants Lidocaine patches put on "later". He denies other needs. Call light is his reach.
--- NOTE | 2022-10-06 10:15 | NUR ---
Pt is off the unit for Group Therapy
--- NOTE | 2022-10-06 10:42 | NUR ---
Called Dr. Flores's office and left a voice mail for the nurse to call back with Rt. foot wound care orders. Pt states this wound has been managed by his PCP. Awaiting callback.
[2022-10-06 11:27] VITALS: BP 137/75
--- NOTE | 2022-10-06 12:05 | NUR ---
Initial dose of midodrine given at 11:26 a.m. Reviewed Lexicomp medication sheet with the pt and discussed that he has to remain upright for a few hours after taking the medication. Discussed that he could probably lay down again after his afternoon therapy session and would need to get up again for the 1630 dose and stay up for a few hours after taking that dose. Pt agreeable and had no further questions. Pt currently sitting up in his wheelchair eating lunch. He denies any adverse reactions at this time. Will continue to monitor. Call light is in his reach.
--- NOTE | 2022-10-06 12:32 | NUR ---
Call received from Dr. Flores's office. For Rt. dorsal foot (closed) wound: Cleanse w/ NS, apply Mupirocin, Telfa, wrap with Coban & change Q3days & PRN. Will notify Dr. Sheriff.
--- NOTE | 2022-10-06 16:34 | NUR ---
Family meeting scheduled for Wednesday at 0930 with brother, Taco.
[2022-10-06 17:20] VITALS: BP 144/85; PULSE 93; TEMP 98.6
--- NOTE | 2022-10-06 19:59 | NUR ---
assisted pt from chair to bed, gait steady. meds given and assessment complete. pt reports some nausea after taking midodrine dose, feeling better now. heel boot placed on right foot. BLE are discolored w blistered, not opened. hematoma present to right side of abdomen where last heparin injection was given. montana to dd w pale yellow urine output. powder applied to left hip area due to redness. INT to left forearm. pt denies any other needs. call light in reach.
[2022-10-07 05:09] VITALS: BP 116/65; PULSE 82; TEMP 98.3
--- NOTE | 2022-10-07 06:55 | NUR ---
ASSESSMENT DONE ORDER WITH NIGHT NURSE AMBER
--- NOTE | 2022-10-07 10:23 | NUR ---
ASSESSMENT DONE ORDER. PATIENT ALERT AND ORIENTED. HAVE BROTHERS CATHETHER. HAS REDNESS ON BREAST AND GROIN AREA. LIDOCAINE PATCH ON LEFT HIP.
--- NOTE | 2022-10-07 15:36 | NUR ---
Mophead Trimmer And Wrapper met with patient to review and provide copy of team conference notes. Patient will be re-evaluated next week and patient stated when asked if he could manage to stay with us another, he advised he didn't really have much of a choice. SW discussed ordering DME including a rollator vs front wheeled walker that are a better fit than what he has now. Patient needs to obtain dimensions of doorways in his home to determine what would work best for him. Family meeting scheduled for Wednesday.
[2022-10-07 17:39] VITALS: BP 120/60; PULSE 76; TEMP 98
--- NOTE | 2022-10-07 18:26 | NUR ---
PATIENT WAS UP SINCE THERAPY DUE TO HIS MEDICATION. I EXPLAIN THAT HE CAN LAY DOWN AFTER DINNER AND SIT UP IN BED. PATIENT BOTH FEET WERE PURPLE DUE TO LACK OF CIRCULATION. SPOKE WITH DR GARCIA HE WILL PREFORM A KNEE INJECTION TOMORROW FOR PATIENT TO HELP WITH PAIN. ZEV GONZALES INTACT AND EMPTY 700CC
--- NOTE | 2022-10-07 21:00 | NUR ---
PT RESTING IN BARIATRIC AIR BED. A&OX4. SKIN CARES GIVEN. NO COMPLAINTS OR NEEDS. DENIES DIZZINESS OR NAUSEA. ATE SNACK. CALL LIGHT IN REACH.
--- NOTE | 2022-10-08 02:40 | NUR ---
PT AWAKE WATCHING TV. REFILLED ICE WATER. NO OTHER NEEDS.
[2022-10-08 05:25] VITALS: BP 128/55; PULSE 79; TEMP 98.1
--- NOTE | 2022-10-08 06:38 | NUR ---
BEDSIDE REPORT DONE WITH NIGHT NURSE PORSCHE
--- NOTE | 2022-10-08 09:48 | NUR ---
ASSESSMENT DONE ORDER. PATIENT ALERT AND ORIENTED. TOOK MEDICATION WITH NO ISSUE. STILL NEED 1 PERSON ASSISTANCE GETTING UP FROM BED. BROTHERS CATH IN PLACE.
[2022-10-08 16:37] VITALS: BP 137/81; PULSE 72; TEMP 98.2
--- NOTE | 2022-10-08 21:00 | NUR ---
PT RESTING IN BARIATRIC AIR BED. SKIN CARE COMPLETED. SEE SHIFT ASSESSMENT. PT DENIES NEEDS AT THIS TIME. CALL LIGHT IN REACH.
[2022-10-09 05:05] VITALS: BP 117/53; PULSE 82; TEMP 97.7
--- NOTE | 2022-10-09 05:09 | NUR ---
PT HAS BEEN SLEEPING. NO DISTRESS.
--- NOTE | 2022-10-09 06:44 | NUR ---
BEDSIDE REPORT DONE WITH NIGHT EZEQUIEL MORRELL
--- NOTE | 2022-10-09 11:24 | NUR ---
ASSESSMENT DONE ORDER. PATIENT ALERT AND ORIENTED. PATIENT ABLE TO GET UP WITH SBA AT TIMES. HAS BROTHERS CATHETHER. ALREADY HAD ABOUT 1200 CC OUT THIS AM. COLOR IS YELLOW AND CLEAR.
[2022-10-09 17:06] VITALS: BP 155/58; PULSE 77; TEMP 97.9
--- NOTE | 2022-10-09 17:43 | NUR ---
PATIENT HAD A GOOD DAY. WALK FROM HIS ROOM TO THE NURSE STATION. STILL HAVING UNBALANCE GAIT
--- NOTE | 2022-10-09 19:20 | NUR ---
RECEIVED CHANGE OF SHIFT REPORT FROM DAY SHIFT RN.
[2022-10-10 05:02] VITALS: BP 123/63; PULSE 74; TEMP 97.7
--- NOTE | 2022-10-10 07:06 | NUR ---
CHANGE OF SHIFT REPORT GIVEN TO DAY SHIFT RNRONALDO.
--- NOTE | 2022-10-10 07:12 | NUR ---
Shift report received from manufacturing shift supervisor RN.
--- NOTE | 2022-10-10 07:31 | NUR ---
Pt awake and sitting up in bed watching tv. Lidocaine patches refused this morning. Dressing change to Rt. dorsal foot completed as ordered. Pt denies pain/discomfort. Mendoza cath patent to drainage w/ clear, yellow urine. He denies other needs. Call light is in his reach.
--- NOTE | 2022-10-10 09:28 | NUR ---
Min A provided to help move BLE over EOB to transfer to the wheelchair. SBA provided while pt stood and moved from bed to wheelchair using a FWW, gait belt. Pt completed oral hygiene independently while seated at the sink. Pt escorted off the unit for Group Therapy.
--- NOTE | 2022-10-10 12:24 | NUR ---
Pt ate 100% of lunch independently. SBA provided as he stood from his wheelchair and transferred to bed. Pt positioned to upright/sitting position in bed. He denies pain/discomfort. Call light is in his reach.
[2022-10-10 17:31] VITALS: BP 126/65; PULSE 83; TEMP 97.6
--- NOTE | 2022-10-10 19:06 | NUR ---
RECEIVED CHANGE OF SHIFT REPORT FROM DAY SHIFT RN.
[2022-10-11 05:37] VITALS: BP 111/65; PULSE 83; TEMP 98.4
--- NOTE | 2022-10-11 07:20 | NUR ---
CHANGE OF SHIFT REPORT GIVEN TO DAY SHIFT RNRICARDA. PATIENT RESTING IN BED WITH NO NEEDS REPORTED AT TIME OF REPORT.
--- NOTE | 2022-10-11 15:31 | NUR ---
Shift summary: Pt Ox4, VSS. Pt denies feeling dizzy upon standing, no syncopal episodes when getting up to WC. Pt stands at bedside after bedbath, ambulates 5-6 steps, SBA with walker. Sits up in WC x 2 hours. Mendoza remains intact, pale yellow urine to dependant drainage, new statlock placed to R inner thigh. Lotion applied to lower legs and feet, able to slough some dry skin from these areas. Reports pain to L hip, lidocaine patches placed to painful area. L pannus and groin pink, no open areas noted. Pt refused sree powder. Bag balm applied to scrotum per pt request. Telfa remains intact to top of R foot.
[2022-10-11 18:03] VITALS: BP 128/64; PULSE 90; TEMP 98.3
--- NOTE | 2022-10-11 18:55 | NUR ---
Shift report to MARY BETH Ruiz.
--- NOTE | 2022-10-11 19:00 | NUR ---
RECEIVED CHANGE OF SHIFT REPORT FROM DAY SHIFT RN. DENIES ANY NEEDS OR PAIN AT THIS TIME.
[2022-10-12 05:07] VITALS: BP 121/56; PULSE 83; TEMP 98.1
--- NOTE | 2022-10-12 07:06 | NUR ---
Shift report received from production shift supervisor RN.
--- NOTE | 2022-10-12 07:08 | NUR ---
CHANGE OF SHIFT REPORT GIVEN TO DAY SHIFT RNRONALDO.
--- NOTE | 2022-10-12 08:07 | NUR ---
Pt sitting up in bed watching tv. Pt ate 100% of breakfast independently. Lidocaine patches declined this morning. Mendoza cath patent to drainage w/ clear, yellow return. He denies pain/discomfort. Denies other needs. Call light is in his reach.
[2022-10-12 11:30] VITALS: BP 145/117
--- NOTE | 2022-10-12 11:33 | NUR ---
Pt sitting up in his wheelchair. BP 145/117. Hospitalist BP notified. VORB recieved to check orthostatic BPs. Pt denies feeling lightheaded or dizzy.
[2022-10-12 11:34] VITALS: BP 147/81
[2022-10-12 11:35] VITALS: BP 132/68
[2022-10-12 11:37] VITALS: BP 111/62
--- NOTE | 2022-10-12 15:51 | NUR ---
Pharmacologist met with patient to check in after the weekend. Patient stated he is ready to get home. Patient also advised he will need assistance with bariatric equipment but is working on getting dimensions from his rental office to determine if the equipment will fit in his apartment.
[2022-10-12 17:32] VITALS: BP 136/64; PULSE 85; TEMP 98.6
--- NOTE | 2022-10-12 17:49 | NUR ---
Pt resting supine in bed w/ HOB elevated to approx 45 degrees. He reports rt. shoulder pain at 4/10. PRN Tylenol given at his request. He denies other needs. Call light is in his reach.
--- NOTE | 2022-10-12 19:36 | NUR ---
pt resting in bed. meds given and assessment complete. pt denies pain in his shoulder. montana to dd w pale yellow urine. dressing to right food is cdi. ble are dry and scaly. pt denies needs at this time. call light in reach.
[2022-10-13 04:34] VITALS: BP 125/54; PULSE 88; TEMP 97.9
--- NOTE | 2022-10-13 06:47 | NUR ---
Shift report received from operation shift supervisor RN. Pt awake and resting supine in bed. Denies pain/discomfort. Mendoza patent to drainage. Denies other needs. Call light in reach.
--- NOTE | 2022-10-13 09:19 | NUR ---
OT in room to assist pt with bathing. Pt currently standing at the sink for oral hygiene. Mendoza cath patent to drainage. Pt refused his lidocaine patches this morning. Will complete Rt. foot wound care after bathing is completed. Pt denies any needs at this time. Call light is in his reach.
--- NOTE | 2022-10-13 10:43 | NUR ---
Pt is off the unit for Group Therapy. Rt. dorsal foot wound care completed per order. Urology consult was placed this morning - notified PETROS [place] with Urology.
[2022-10-13 17:41] VITALS: BP 149/76; PULSE 84; TEMP 98.4
--- NOTE | 2022-10-13 22:54 | NUR ---
pt resting in bed talking on the phone. meds given and assessment complete. pt denies pain at the moment. nan hawk pale yellow output. call light within reach.
[2022-10-14 05:10] VITALS: BP 119/64; PULSE 94; TEMP 97.5
--- NOTE | 2022-10-14 06:11 | NUR ---
montana discontinued without difficulty.
--- NOTE | 2022-10-14 06:54 | NUR ---
Shift report received from overnight associate RN.
--- NOTE | 2022-10-14 07:08 | NUR ---
Pt awake and watching tv. Lidocaine patches refused. He denies pain or discomfort. Mendoza cath was dc'd approx 1 hr ago during noc shift. Encouraged fluids. Pt denies the urge to void at this time. Will continue to monitor.
[2022-10-14 09:30] VITALS: BP 127/66; BP 70/30
--- NOTE | 2022-10-14 09:31 | NUR ---
Pt back in room after PT. PT reporting that pt had several episodes of dizziness on standing. BP 127/66 sitting, 70/[address] Sheriff aware. Will restart Midodrine as ordered. Snack given.
--- NOTE | 2022-10-14 14:49 | NUR ---
Insurance Claims Analyst met with patient to review and provide copy of team conference notes. Discharge date set for Wednesday. Patient was agreeable, but stated he was hoping for discharge sooner. SW reviewed recommendation for home health nursing and outpatient PT/OT. Patient would like outpatient therapy set up at [facility]. Patient open to nursing, SW to follow up with list of agencies. SW discussed bariatric four wheeled walker and that insurance would not cover it. Patient understands and stated he will work on ordering one.
[2022-10-14 17:30] VITALS: BP 127/60; BP 160/78; PULSE 74; PULSE 83; TEMP 98.1; TEMP 98.4
--- NOTE | 2022-10-14 19:11 | NUR ---
RECEIVED CHANGE OF SHIFT REPORT FROM DAY SHIFT RN.
[2022-10-15 05:44] VITALS: BP 155/79; PULSE 92; TEMP 98.4
--- NOTE | 2022-10-15 07:04 | NUR ---
BEDSIDE REPORT DONE ORDER WITH NIGHT NURSE RADHA
--- NOTE | 2022-10-15 07:41 | NUR ---
CHANGE OF SHIFT REPORT GIVEN TO DAY SHIFT RNROSSY.
--- NOTE | 2022-10-15 09:06 | NUR ---
ASSESSMENT DONE ORDER. PATIENT ALERT AND ORIENTED. LUNG CLEAR IN ALL LOBES. BOWEL SOUND ACTIVE IN ALL 4 QUADS. PATIENT WILL BE DISCHARGE TODAY. PATIENT ABLE TO GET UP WITH NO DIZZINESS AT [facility]. BLOOD PRESSURE WAS HIGH THIS MORNING. RECHECK THE BLOOD PRESSURE AND IT WAS 159/89. INFORM DR GARCIA.
[2022-10-15 09:08] VITALS: BP 159/89
[2022-10-15] MEDS ORDERED: PROAMATINE2.5 MG PO (11:55)
[2022-10-15] MEDS ORDERED: DESENEX TP (11:58)
[2022-10-15] MEDS ORDERED: MELATONIN3 M1 PO (11:58)
[2022-10-15] MEDS ORDERED: ULTRAM 50MG TAB50 MG PO (11:59)
[2022-10-15 12:35] LABS: CALCIUM 9.8 mg/dL (8.4-10.2); CREATININE, serum 3.09 mg/dL (0.72-1.25); POTASSIUM 5.5 mmol/L (3.5-4.5)
--- NOTE | 2022-10-15 14:30 | NUR ---
Has lack of transportation kept you from medical appts, meetings, work, or from getting things needed for daily living? NO How often do you feel lonely or isolated from those around you? RARELY Over the past 5 days, how much of the time has pain made it hard for you to sleep? OCCASIONALLY Over the past 5 days, how often have you limited your participation in therapy due to pain? RARELY/NOT AT ALL Over the past 5 days, how often have you limited your day-to-day activities because of pain? OCCASIONALLY
--- NOTE | 2022-10-15 16:54 | NUR ---
Patient to discharge home today due to insurance. MARIBEL met with patient to discuss DME. Patient does not care to have bariatric commode ordered as he plans to use his bathroom at home. Patient stated he plans to order bariatric rollator and shower seat on his own. Patient has a rollator available for the time being. SW provided Medicare.gov list of HH agencies and patient selected [facility] for nursing visits. MARIBEL contacted [facility] and faxed referral with orders. MARIBEL also scheduled outpatient PT/OT at [facility] and faxed referral with orders.
--- NOTE | 2022-10-15 17:58 | NUR ---
patient was educated on discharge instruction. patient understood all appointments and time. patient left the facility at 540pm with his sponser.
== END 2022-10-15 17:40 | disposition home health service (06) | DRG 947 ==
PROVIDERS: Internal Medicine; ADMIT Physical Medicine & Rehabilitation Sports Medicine
PROC: 3E0U33Z Introduction of Anti-inflammatory into Joints, Percutaneous Approach (ICD-10-PCS; principal; 2022-10-08)
DX: R53.81 Other malaise (principal); A41.9 Sepsis, unspecified organism; N13.8 Other obstructive and reflux uropathy; N13.6 Pyonephrosis; N17.9 Acute kidney failure, unspecified; Z68.44 Body mass index [BMI] 60.0-69.9, adult; E66.01 Morbid (severe) obesity due to excess calories; N40.1 Benign prostatic hyperplasia with lower urinary tract symptoms; N18.9 Chronic kidney disease, unspecified; B96.4 Proteus (mirabilis) (morganii) as the cause of diseases classified elsewhere; I12.9 Hypertensive chronic kidney disease with stage 1 through stage 4 chronic kidney disease, or unspecified chronic kidney disease; D69.6 Thrombocytopenia, unspecified; M25.551 Pain in right hip; M54.9 Dorsalgia, unspecified; G47.00 Insomnia, unspecified; Z79.891 Long term (current) use of opiate analgesic; Z87.891 Personal history of nicotine dependence; Z79.899 Other long term (current) drug therapy; Z96.652 Presence of left artificial knee joint; I95.1 Orthostatic hypotension; M17.11 Unilateral primary osteoarthritis, right knee; M25.511 Pain in right shoulder; E87.5 Hyperkalemia; Z87.442 Personal history of urinary calculi
CPT/HCPCS: A9270; J1644; J3301; J7030

== ENCOUNTER 2023-04-15 17:34 | Observation (INO) | payer MEDICAID ==
[~2023-04-15] VITALS: Ht 190.5 cm; Wt 215.0 kg
[~2023-04-15 17:34] MED LIST changes: +AFRIN 15 ML15 ML NS; +AMOXICILLIN 8751 TAB PO; +BLUE-EMU LIDOC1 EACH TP; +CRANBERRY 4001 EACH PO; +DESYREL 100MG100 MG PO; +LAMICTAL 25MG T25 MG PO; +LASIX 40MG TABL40 MG PO; +MELATONIN3 M1 PO; +MICATIN; +MIRALAX510G PO; +NORVASC 10MG10 MG PO; +PROAMATINE2.5 MG PO; +PROVENTIL0.09 MG/A1 IH; +TEMOVATE0.05% TP; +TYLENOL 500MG500 MG PO; +VITAMIN B12 1541 TAB PO; +VITAMIN B12 681 TAB PO; +VITAMINC1000TA PO; +ZANAFLEX 4MG TAB4 MG PO
[2023-04-15 18:35] LABS: BASO % 0.4 % (0.0-2.0); EOS # 0.2 K/mm3 (0.0-0.7); EOS % 1.7 % (0.0-4.0); GRAN # 7.9 K/mm3 (1.4-6.5); GRAN % 79.9 % (42.2-75.2); HEMATOCRIT 41.2 % (42.0-52.0); HEMOGLOBIN 12.8 g/dl (13.5-18.0); LYMPH # 1.3 K/mm3 (1.2-3.4); LYMPH % 12.8 % (20.0-51.0); MEAN CELL VOLUME 95 fl (80.0-100.0); MEAN CORPUSCULAR HEMOGLOBIN 29 pg (27-31); MEAN CORPUSCULAR HGB CONC 31 g/dl (33.0-37.0); MEAN PLATELET VOLUME 9.3 fl (7.4-10.4); MONO # 0.5 K/mm3 (0.1-0.6); MONO % 4.9 % (1.7-9.3); PLATELET COUNT 164 K/mm3 (130-400); RED BLOOD COUNT 4.35 M/mm3 (4.20-5.60); REDCELL DISTRIBUTION WIDTH-CV 15.2 % (11.5-14.5)
[2023-04-15 18:52] LABS: ALBUMIN 3.3 gm/dL (3.4-4.8); CALCIUM 9.6 mg/dL (8.4-10.2); CREATININE, serum 2.1 mg/dL (0.72-1.25); TOTAL PROTEIN 7.4 gm/dL (6.2-8.1)
[2023-04-15 19:13] LABS: COLLECTION METHOD CATHETER
[2023-04-15 19:23] LABS: URINE APPEARANCE Cloudy (CLEAR/HAZY); URINE COLOR Yellow (YELLOW)
[2023-04-15 19:24] LABS: URINE BLOOD TRACE-LYSED (NEGATIVE); URINE GLUCOSE Negative (NEGATIVE); URINE KETONE Negative (NEGATIVE); URINE NITRATE Negative (NEGATIVE); URINE PROTEIN(semi-quant) TRACE (NEGATIVE); URINE UROBILINOGEN 0.2 E.U/dL (0.2-1.0)
[2023-04-15 19:28] LABS: SQUAMOUS EPITHELIAL 0-2 /hpf (0-10); URINE BACTERIA Moderate /hpf (NONE SEEN)
[2023-04-15 20:30] VITALS: BP_SYST 123
--- NOTE | 2023-04-15 22:00 | NUR ---
PT ARRIVES VIA ED CART TO ROOM 322. PT MOVED WITH SLIDE BOARD AND 4 STAFF TO BED. PT IS ALERT AND ORIENTED X4. HAS MOIST/REDDENED SKIN UNDER LT BREAST AND UNDER LT PANNUS, INTERDRY PLACED. HAS EDEMA TO BLE, REMOVED COMPRESSION HOSE PER HIS REQUEST. INT TO LAC.
[2023-04-15 22:04] VITALS: BP 123/80; PULSE 85; TEMP 98.4
[2023-04-15 23:36] VITALS: BP 123/80
[2023-04-16] VITALS (11 sets, daily range): BP systolic 122–143; BP diastolic 59–88; PULSE 75–84; TEMP 97.5–98.4
[2023-04-16 05:28] LABS: HEMOGLOBIN 11.5 g/dl (13.5-18.0); MEAN CELL VOLUME 92 fl (80.0-100.0); MEAN CORPUSCULAR HEMOGLOBIN 29 pg (27-31); MEAN CORPUSCULAR HGB CONC 32 g/dl (33.0-37.0); MEAN PLATELET VOLUME 9.6 fl (7.4-10.4); PLATELET COUNT 142 K/mm3 (130-400); RED BLOOD COUNT 3.94 M/mm3 (4.20-5.60); REDCELL DISTRIBUTION WIDTH-CV 15.3 % (11.5-14.5)
[2023-04-16 05:29] LABS: HEMATOCRIT 36.2 % (42.0-52.0)
[2023-04-16 05:37] LABS: ALANINE AMINOTRANSFERASE < 6 U/L (0-55); ALBUMIN 2.7 gm/dL (3.4-4.8); ALKALINE PHOSPHATASE 51 U/L (40-150); ANION GAP 9 mmol/L (7-16); AST,SGOT 10 U/L (5-34); BILIRUBIN,TOTAL 0.8 mg/dL (0.2-1.2); BLOOD UREA NITROGEN 20 mg/dL (8-26); CALCIUM 8.9 mg/dL (8.4-10.2); CARBON DIOXIDE 29 mmol/L (23-31); CHLORIDE 102 mmol/L (98-107); GLUCOSE 95 mg/dL (70-99); MAGNESIUM 1.7 mg/dL (1.6-2.6); POTASSIUM 3.9 mmol/L (3.5-4.5); SODIUM 140 mmol/L (136-145); TOTAL PROTEIN 5.9 gm/dL (6.2-8.1)
--- NOTE | 2023-04-16 06:41 | NUR ---
PT TAKES SCHEDULED AM MED WITHOUT PROBLEM. NO REQUESTS AT THIS TIME.
--- NOTE | 2023-04-16 07:17 | NUR ---
Shift report received from the night nurseZoraida RN.
--- NOTE | 2023-04-16 10:11 | NUR ---
Patient awake sitting up in a bariatric chair eating breakfast. Patient alert and oriented. Patient denies shortness of breath. Patient has weakness to LLE, painful with movement. Clobetasol applied to excoriation beneath the left breast and pannus area. INT intact. Patient informed of activities of walking to the bathroom every 2 hours to void. Patient verbalized understanding. Call puga within reach.
--- NOTE | 2023-04-16 12:41 | NUR ---
This nurse assisted patient in a standing position for about 45seconds and assisted patient back to bariatric chair.
--- NOTE | 2023-04-16 12:58 | NUR ---
Initial visit: Law Firm Receptionist stopped by room on rounds. Pt was resting and content sitting in his chair. Pt has no needs right now. Pt appreciated the visit. Law Firm Receptionist will follow up as needed.
--- NOTE | 2023-04-16 15:09 | NUR ---
Staying Machine Operator met with patient to discuss discharge planning. Patient was at this facility a couple months ago and was discharged to [facility] LTC. Patient advised he was discharged from [facility] yesterday and transported home in a private vehicle. Patient stated the vehicle that arrived was supposed to be medical transport but it was a small sedan. Patient advised he was cramped into the vehicle for the two hour trip and when they arrived at his apartment complex, he could not get out of the vehicle. Patient stated that [facility] was there for another call and attempted to get him out of the vehicle, but his knees began to buckle. Rolf advised he ended up being brought to the ED by the medical transport specialist that drove him to [place]. Patient stated he was told by [facility] that he had run out of rehab benefits and that he could transition to LTC, but he would have a patient obligation of $880 each month. Patient stated he cannot afford this. SW had discussion with patient that he cannot return home and that he will likely have to give up his apartment to pay for LTC as returning home does not appear to be likely for the time being. Patient is unhappy with this but does verbalize understanding. SW advised the state looks at his income and decides the amount he has to pay for his care, which is the amount [facility] quoted him. Patient inquired about [facility]. SW advised this would not be a good fit for him as at this point in time, our therapy team is recommending LTC. Also SW reminded him that he just was discharged from a nursing facility with some rehab and he still was unable to make it into the home. Patient stated he understands. SW contacted MARY BETH Vallejo at [facility] who confirmed that patient discharged yesterday. Genevieve stated that they were frustrated with the medical transport company because they told them not to send a sedan and they did. Genevieve reported patient was doing well with them and walking 60 ft without assistance. Genevieve advised someone would just follow behind with the wheelchair just incase. Genevieve stated patient was getting himself dressed. SW discussed patient's history with this facility and Genevieve cited that patient did not do well at home after IPR because his Lamictal was stopped. Genevieve advised when patient first arrived to their facility, he was unmotivated and not working with therapy. During a care plan, [facility] told patient he would be transitioned to LTC and lose his apartment if he did not start working with therapy. This motivated patient and he was also doing better after his Lamictal was increased. MARIBEL faxed Genevieve clinicals and asked them to review to see if they can accept patient back to their facility. MARIBEL contacted [place], [facility], [place], [facility], [facility], [facility], [facility], [place], and [place]. All cannot accept as they either do not have capacity to accept a bariatric patient or do not have a LTC plan. SW followed up with patient to provide update. Initially, patient gave SW a firm "NO" when SW advised our only option as of right now is to return to [facility]. Patient stated he cannot afford it and cannot move his belongings down there. SW again explained that at this point, he may have to use his income to pay for his care instead of his apartment and living expenses here locally. SW again reviewed patient's inability to walk and get into his apartment. Patient verbalized understanding. While in the room, patient called MARY BETH Vallejo at [facility] and left her a message inquiring about bed availability and if they could take him back. SW contacted Genevieve at [facility] and left a message. Discharge Plan: LTC
--- NOTE | 2023-04-16 19:00 | NUR ---
PT ASSISTED FROM RECLINER TO BED WITH 3 STAFF MEMBERS. DOES FAIR WITH AMBULATING. HAS INT TO LAC. NO CONCERNS VOICED AT THIS TIME.
--- NOTE | 2023-04-16 20:00 | NUR ---
PT INCONTINENT OF URINE AFTER GOING TO BED. PT STRONGLY REMINDED TO CALL FOR ASSIST WITH URINAL. VERBALIZED URGENCY TO URINATE D/T UTI. PAD CHANGED, PERICARES GIVEN.
--- NOTE | 2023-04-16 21:05 | NUR ---
HS MEDS GIVEN. APPLIED OINTMENT TO PANNUS AND UNDER LT BREAST AFTER CLEANSING WITH SOAP/WATER. GROIN MILDLY REDDENED, WASHED WITH SOAP AND WATER. INT TO LAC FLUSHES WELL. PT USED URINAL WITH ASSIST AT THIS TIME ALSO. ENCOURAGED TO CALL FOR ASSIST WITH URINAL VS BEING INCONTINENT IN BED.
[2023-04-17] VITALS (11 sets, daily range): BP systolic 109–147; BP diastolic 62–81; PULSE 68–91; TEMP 98–98.9
--- NOTE | 2023-04-17 08:00 | NUR ---
PATIENT IS A&O. VSS. NO COMPLAINTS THIS AM, PATIENT SITTING UP IN BED ON HOLD WAITING TO PLACE BREAKFAST ORDER. NO C/O N/V. AHA DIET. LEFT AC IV TO INT. PATIENT IS OBESE, WITH SKIN ISSUES IN FOLDS, SEE SHIFT ASSESSMENT. MAX 2 ASSIST, NEEDS ASSISTANCE WITH URINAL HE CAN NOT REACH. PT/OT CONSULTED. HEAD TO TOE ASSESSMENT COMPLETE. AM MEDS GIVEN. NO OTHER NEEDS AT THIS TIME. CALL LIGHT IN REACH.
--- NOTE | 2023-04-17 19:50 | NUR ---
Patient assessed at this time, see shift assessment, A/Ox4, denies pain or discomfort, INT to left AC infusing well, meds from the nursing that he came from were taken to the pharmacy by the warehouse inventory clerk as per policy and protocol, denies further need at this time, call light and personal items within reach, will continue to monitor.
--- NOTE | 2023-04-18 00:30 | NUR ---
Patient incontinent of urine at this time, pericare provided, pad changed.
[2023-04-18 03:38] VITALS: BP 139/78; PULSE 78; TEMP 97.7
--- NOTE | 2023-04-18 05:16 | NUR ---
Patient incontinent of urine again, reminded to let the staff know whenever he needs to go, pericare provided, up on his bariatric chair at this time and is ready for breakfast.
[2023-04-18 07:09] VITALS: BP 148/69; PULSE 60; TEMP 98
--- NOTE | 2023-04-18 08:55 | NUR ---
Patient sitting up in the bariatric chair. A&Ox4. VSS. IV CDI. Denies pain and discomfort. Call light within reach
[2023-04-18 11:02] VITALS: BP 164/67; PULSE 77; TEMP 98
[2023-04-18 15:05] VITALS: BP 133/77; PULSE 64; TEMP 98.3
[2023-04-18 19:41] VITALS: BP 126/90; PULSE 66; TEMP 98.1
--- NOTE | 2023-04-18 19:52 | NUR ---
Patient resting in bed, has been up mostly on his bariatric chair all day, in good spirits, A/Ox4, left breast and left pannus cleansed with wipes, dry with towel, ointment applied; groins cleansed with wipes as well and dry with towel, denies SOA, reminded to call whenever he needs to void, call light and personal items within reach.
[2023-04-18 23:39] VITALS: BP 148/77; PULSE 96; TEMP 98.4
[2023-04-19] VITALS (10 sets, daily range): BP systolic 129–147; BP diastolic 68–93; PULSE 56–76; TEMP 97.4–99.2
--- NOTE | 2023-04-19 00:26 | NUR ---
Called Tinythe PETROS and made her aware that patient wanted his flomax changed to daily 0900 instead of HS. Demi Franks is okay with it.
--- NOTE | 2023-04-19 09:00 | NUR ---
Pt. sitting up in bed. Pt. assisted to the BSC and then to the chair. Pt. had a rhiannon. juan GARNER. Pt. denies pain or other needs, call light within reach.
--- NOTE | 2023-04-19 19:30 | NUR ---
PT A&O X4 LAYING IN BED. VSS. SHIFT ASSESSMENT COMPLETE & HS MEDS GIVEN. DENYING ANY PAIN. OINTMENT APPLIED TO REDDENED GROIN & LEFT CHEST. INT TO LEFT AC PATENT. BED LOWERED & CALL LIGHT IN REACH. DENYING FURTHER NEEDS.
--- NOTE | 2023-04-19 23:07 | NUR ---
PT HAS HAD 2 INCONTINENT EPISODES & STATES HE CAN NOT USE THE URNIAL ON HIS OWN - EDUCATED TO CALL FOR ASSISTANCE BUT PT STATES "IT JUST HAPPENS SO FAST BECAUSE OF THE UTI". INCONTINENCE CARE PROVIDED 2X.
[2023-04-20] VITALS (10 sets, daily range): BP systolic 124–154; BP diastolic 61–81; PULSE 55–72; TEMP 98.1–99.3
--- NOTE | 2023-04-20 06:32 | NUR ---
PT AMBULATED TO RECLINER WITH 2X ASSIST. INCONTINENCE CARE PROVIDED. CALL LIGHT IN REACH & PT DENYING FURTHER NEEDS.
--- NOTE | 2023-04-20 08:00 | NUR ---
Pt. sitting up in chair this am. Pt. is A&OX3, assessment complete. INT to lt. ac patent. Pt. denies pain or other needs, call light within reach.
--- NOTE | 2023-04-20 08:24 | NUR ---
(Late Entry) On 04/19/23 Commercial Analyst received a message from Genevieve RN/financial health counselor at [facility] stating they would not accept patient back. SW notified Farm Laborer who reached out to patient's Tank Charger through his insurance. MARIBEL gave referrals to [facility], [facility], [facility], [facility], [facility], [facility], [facility], [facility], and [facility]. Mick of [facility] advised they have no LTC bed at this time. MARIBEL received a message from [facility] and [facility] declining referral as they cannot meet patient's needs at this time due to the acuity of their current residents.
--- NOTE | 2023-04-20 16:38 | NUR ---
intake worker met with patient to discuss discharge planning. intake worker updated patient that they were working on sending more referrals for [facility] but as of right now they have not received an acceptance yet. Patient understood and expressed he had been able to walk to the carpet in the hallway with PT today. Social work will continue to follow to find placement. Discharge Plan: [facility]
--- NOTE | 2023-04-20 20:00 | NUR ---
PT A&O X4 SITTING IN RECINER & AMBULATED BACK TO BED W/ ASSISTANCE. VSS. DENYING ANY PAIN OR N/V. OINTMENT APPLIED TO BLE. INCONTINENCE CARE PROVIDED & OINTMENT TO GROIN. PANUS FOLDS CLEANED & INTERDRY APPLIED. INT TO LEFT AC PATENT. BED LOWERED & CALL LIGHT IN REACH. PT DENYING FURTHER NEEDS AT THIS TIME.
[2023-04-21] VITALS (12 sets, daily range): BP systolic 124–169; BP diastolic 53–83; PULSE 59–75; TEMP 97.6–98.9
--- NOTE | 2023-04-21 07:30 | NUR ---
Pt. sitting up in bed, assisted to chair with 2 assist, walker and gait belt. Pt. is A&OX3 assessment complete. INT to lt. ac patent. Pt. denies further needs, call light within reach.
[2023-04-21 10:41] LABS: BASO % 0.4 % (0.0-2.0); EOS # 0.2 K/mm3 (0.0-0.7); EOS % 2.2 % (0.0-4.0); GRAN % 68.5 % (42.2-75.2); HEMOGLOBIN 10.9 g/dl (13.5-18.0); LYMPH # 1.5 K/mm3 (1.2-3.4); LYMPH % 20.5 % (20.0-51.0); MEAN CELL VOLUME 93 fl (80.0-100.0); MEAN CORPUSCULAR HEMOGLOBIN 29 pg (27-31); MEAN CORPUSCULAR HGB CONC 32 g/dl (33.0-37.0); MEAN PLATELET VOLUME 9.8 fl (7.4-10.4); MONO # 0.6 K/mm3 (0.1-0.6); MONO % 7.9 % (1.7-9.3); PLATELET COUNT 128 K/mm3 (130-400); RED BLOOD COUNT 3.73 M/mm3 (4.20-5.60); REDCELL DISTRIBUTION WIDTH-CV 15.6 % (11.5-14.5)
[2023-04-21 10:44] LABS: HEMATOCRIT 34.6 % (42.0-52.0)
[2023-04-21 11:09] LABS: CREATININE, serum 2.52 mg/dL (0.72-1.25); POTASSIUM 4.1 mmol/L (3.5-4.5)
--- NOTE | 2023-04-21 17:20 | NUR ---
frog or oyster farmworker contacted [place] regarding placement for patient. [place] requested the referral to review. frog or oyster farmworker faxed referral to [facility]. [place] contacted the certified social workers in health care requesting additional information about patient's last suicide attempt. frog or oyster farmworker reviewed patient's psych evaluation during his last hospital stay and it indicates his last suicide attempt was approximately 10 years ago. frog or oyster farmworker updated [place]. [place] also expressed they will need the three bank statements to provide to Medicaid. frog or oyster farmworker will discuss this with patient. Discharge Plan: LTC
--- NOTE | 2023-04-21 21:00 | NUR ---
PT A&O X4 LAYING IN BED. VSS. C/O SOME MILD PAIN IN HIS KNEE - GIVEN PRN TYLENOL. OINTMENT APPLIED TO REDDENED AREAS - SEE SHIFT ASSESSMENT. INTERDRY TO PANUS FOLDS. BED LOWERED & CALL LIGHT IN REACH. DENYING FURTHER NEEDS.
[2023-04-22] VITALS (14 sets, daily range): BP systolic 139–157; BP diastolic 73–79; PULSE 58–84; TEMP 97.6–98.8
[2023-04-22 05:41] LABS: BASO % 0.5 % (0.0-2.0); EOS # 0.2 K/mm3 (0.0-0.7); EOS % 2.2 % (0.0-4.0); GRAN # 4.9 K/mm3 (1.4-6.5); HEMOGLOBIN 11.4 g/dl (13.5-18.0); LYMPH # 1.7 K/mm3 (1.2-3.4); MEAN CELL VOLUME 92 fl (80.0-100.0); MEAN CORPUSCULAR HEMOGLOBIN 29 pg (27-31); MEAN CORPUSCULAR HGB CONC 32 g/dl (33.0-37.0); MONO # 0.6 K/mm3 (0.1-0.6); MONO % 7.9 % (1.7-9.3); PLATELET COUNT 122 K/mm3 (130-400); RED BLOOD COUNT 3.88 M/mm3 (4.20-5.60); REDCELL DISTRIBUTION WIDTH-CV 15.7 % (11.5-14.5)
[2023-04-22 05:44] LABS: HEMATOCRIT 35.7 % (42.0-52.0)
[2023-04-22 06:21] LABS: CREATININE, serum 2.73 mg/dL (0.72-1.25); POTASSIUM 4.6 mmol/L (3.5-4.5)
--- NOTE | 2023-04-22 08:25 | NUR ---
pt sitting in recliner with breakfast. pt a&ox4 and vss. meds given and assessment complete. pt denies pain. call light in reach. no needs at this time.
--- NOTE | 2023-04-22 09:22 | NUR ---
breaker table worker spoke with care team at [facility] regarding patient and the need for intermediate designer care. They will review the referral and advise if they can accept.
--- NOTE | 2023-04-22 10:01 | NUR ---
Head Stock Operator provided referral to [facility]. SW then met with patient to notify him that a client service representative from [facility] may come visit him today.
--- NOTE | 2023-04-22 14:34 | NUR ---
wood and wood products factory worker met with patient to discuss bank statements that is required for [facility]. Patient expressed he would call his bank and have them fax it to the hospital to send to [facility]. Patient expressed his insurance and [address] [place] [address] dependency case manager were both expressing he could return home. Patient expressed staff at the hospital have all said he should go to assisted living. wood and wood products factory worker expressed it has been recommended he go to [facility] which is the referrals she has been sending. wood and wood products factory worker expressed patient will likely need to release his apartment as he expressed he would not be able to afford both. Patient understood. Patient also expressed he did not want to fall when he returned home and was in agreement intermediate manager care would be best for him at this time. wood and wood products factory worker was notified [facility] would also like to receive the bank statements for placement consideration. wood and wood products factory worker faxed referral for LTC to [facility] and [facility]. wood and wood products factory worker contacted [facility] regarding the bank statements as they had not received the fax yet. Bank expressed they would resend. Discharge Plan: LTC
--- NOTE | 2023-04-22 19:02 | NUR ---
pt reports having an upset stomach. pulled zofran to relieve symptoms. pt does not have IV. pt wanting to try crackers to relieve symptoms since no IV is present. discarded zofran in sharps container.
[2023-04-23] VITALS (10 sets, daily range): BP systolic 116–161; BP diastolic 67–84; PULSE 62–89; TEMP 97.7–98.5
[2023-04-23 05:35] LABS: BASO % 0.4 % (0.0-2.0); EOS # 0.2 K/mm3 (0.0-0.7); EOS % 2.8 % (0.0-4.0); GRAN # 4.9 K/mm3 (1.4-6.5); GRAN % 67.4 % (42.2-75.2); HEMOGLOBIN 10.7 g/dl (13.5-18.0); LYMPH # 1.5 K/mm3 (1.2-3.4); LYMPH % 21.2 % (20.0-51.0); MEAN CELL VOLUME 93 fl (80.0-100.0); MEAN CORPUSCULAR HEMOGLOBIN 30 pg (27-31); MEAN CORPUSCULAR HGB CONC 32 g/dl (33.0-37.0); MEAN PLATELET VOLUME 10.1 fl (7.4-10.4); MONO # 0.6 K/mm3 (0.1-0.6); MONO % 7.8 % (1.7-9.3); PLATELET COUNT 132 K/mm3 (130-400); RED BLOOD COUNT 3.59 M/mm3 (4.20-5.60); REDCELL DISTRIBUTION WIDTH-CV 15.8 % (11.5-14.5)
[2023-04-23 05:38] LABS: HEMATOCRIT 33.5 % (42.0-52.0)
[2023-04-23 05:46] LABS: CALCIUM 8.8 mg/dL (8.4-10.2); CREATININE, serum 2.82 mg/dL (0.72-1.25); POTASSIUM 4.5 mmol/L (3.5-4.5)
--- NOTE | 2023-04-23 08:03 | NUR ---
pt sitting up in recliner. vss. pt denies pain. voiding without difficulty. interdry placed in between groin. call light in reach. no needs at this time.
--- NOTE | 2023-04-23 09:18 | NUR ---
terrazzo worker helper spoke w Delia Mendez, insurance examining clerk and confirmed that patient requires terminal carman care. Delia will continue conversations with [facility] to encourage them to accept patient back for retirement care. Srinath Lopez will visit patient today.
--- NOTE | 2023-04-23 09:45 | NUR ---
spoke w social work, [facility] has accepted pt for discharge today. called [facility] for update on [place] placement, states he spoke w Dr Cruz and they will discuss with hospitalist. will wait for further instructions regarding [place] placement and discharge.
--- NOTE | 2023-04-23 15:18 | NUR ---
[facility] declines patient. shellfish bed worker spoke with Genevieve at [facility] and confirms that they will accept patient next week and will arrange for van transportation. Genevieve states they are working to secure a "single case agreement" with patient's insurance on Wednesday. Genevieve states they have a CARE assessment completed and it is valid.
--- NOTE | 2023-04-23 15:50 | NUR ---
workers compensation claims supervisor was notified by [place] that they would be able to accept patient to penitentiary care. [place] expressed patient's responsibility is $872. workers compensation claims supervisor and social work student, Vanita, met with patient to notify him [facility] would be able to accept and his out of pocket responsibility. Patient expressed he was okay with that amount and only concerned about being able to take his computer with him and if the room was shared. workers compensation claims supervisor contacted [place] regarding patient's concern. [place] expressed he could take his computer and his room would be shared. [place] expressed he could receive a private room but it would be an additional $30 per day. workers compensation claims supervisor notified patient and expressed if he would want a private room it would be an additional fee. Patient expressed he needed to have a [place] catheter placed then he could transfer whenever ready for discharge. [place] expressed they could take patient today when medically cleared. workers compensation claims supervisor notified nursing and hospitalist. workers compensation claims supervisor was notified that Jasmina Burns, Social Work Director, contacted [place] regarding patient needing penitentiary care. See Jasmina's notes. Discharge plan: LTC
--- NOTE | 2023-04-23 20:00 | NUR ---
Patient assessed at this time, see shift assessment, A/Ox4, denies pain or discomfort at this time, voided 300ml using the urinal he could no longer wait to go to the bathroom, reminded to call whenever he need to void, denies further need, call light and personal items within reach.
[2023-04-24 04:17] VITALS: BP 144/72; PULSE 85; TEMP 98.1
--- NOTE | 2023-04-24 05:00 | NUR ---
Patient was incontinent of urine at this time, got up and pericare provided, complete bed change done. Reinforced that whenever he needs to void, call the staff.
[2023-04-24 05:50] LABS: BASO % 0.4 % (0.0-2.0); EOS # 0.2 K/mm3 (0.0-0.7); EOS % 2.9 % (0.0-4.0); GRAN # 5.1 K/mm3 (1.4-6.5); HEMOGLOBIN 11.4 g/dl (13.5-18.0); LYMPH # 1.4 K/mm3 (1.2-3.4); LYMPH % 19.7 % (20.0-51.0); MEAN CELL VOLUME 93 fl (80.0-100.0); MEAN CORPUSCULAR HEMOGLOBIN 30 pg (27-31); MEAN CORPUSCULAR HGB CONC 32 g/dl (33.0-37.0); MEAN PLATELET VOLUME 9.8 fl (7.4-10.4); MONO # 0.5 K/mm3 (0.1-0.6); MONO % 6.6 % (1.7-9.3); PLATELET COUNT 126 K/mm3 (130-400); RED BLOOD COUNT 3.79 M/mm3 (4.20-5.60); REDCELL DISTRIBUTION WIDTH-CV 15.9 % (11.5-14.5)
[2023-04-24 05:54] LABS: HEMATOCRIT 35.3 % (42.0-52.0)
[2023-04-24 06:07] LABS: CREATININE, serum 2.75 mg/dL (0.72-1.25); POTASSIUM 4.7 mmol/L (3.5-4.5)
[2023-04-24 07:41] VITALS: BP 141/82; PULSE 82; TEMP 98
--- NOTE | 2023-04-24 08:00 | NUR ---
PT RESTING IN CHAIR WOITH NO PAIN AT THIS TIME. PT ASSISTED WITH URINAL IN THE CHAIR. CREAM APPLIED TO BLE FOR SKIN REDDNESS. NO NEEDS AT THIS TIME. WILL CONTINUE TO MONITOR.
--- NOTE | 2023-04-24 11:08 | NUR ---
sanitation worker hosing machinery faxed clinical updates to [facility]. Discharge Plan: LTC - [facility]
--- NOTE | 2023-04-24 11:43 | NUR ---
Inspector Circuitry Negative rounds: Patient initially declined Inspector Circuitry Negative; however, Patient did speak with Inspector Circuitry Negative about the weather, football, and cellphones.
[2023-04-24 12:11] VITALS: BP 137/78; PULSE 74; TEMP 98.2
[2023-04-24 16:11] VITALS: BP 151/71; PULSE 80; TEMP 98.8
[2023-04-24 19:28] VITALS: BP 130/43; PULSE 66; TEMP 97.8
--- NOTE | 2023-04-24 21:00 | NUR ---
Patient resting in bed, A/Ox4, assessed around this time, reminded to call the staff whenever he needs to void, voided 300ml out of the urinal, denies further needs, call light and personal items within reach.
[2023-04-24 23:43] VITALS: BP 162/68; PULSE 81; TEMP 98.4
[2023-04-25 03:19] VITALS: BP 152/83; PULSE 65; TEMP 98.3
--- NOTE | 2023-04-25 03:23 | NUR ---
Patient incontinent of urine at this time, complete bed change done, pericare provided.
--- NOTE | 2023-04-25 08:00 | NUR ---
PT RESTING IN BED WITH NO PAIN. ASSISTED WITH ADL'S AND AMBULATED TO CHAIR WITH 1 ASSIST AND WALKER, WEAK GAIT. NO NEEDS AT THIS TIME. WILL CONTINUE TO MONITOR.
[2023-04-25 08:30] VITALS: BP 140/78; PULSE 81; TEMP 98.1
--- NOTE | 2023-04-25 11:43 | NUR ---
Telephone Solicitor Supervisor rounds: Telephone Solicitor Supervisor offered visit since Patient did not have visitors. Patient and Telephone Solicitor Supervisor talked about TV, movies, and subscription services such as [employer], [email or web address], and [employer].
[2023-04-25 11:58] VITALS: BP 150/63; PULSE 72; TEMP 98.3
[2023-04-25 16:14] VITALS: BP 158/79; PULSE 63; TEMP 98.6
[2023-04-25 19:18] VITALS: BP 135/73; PULSE 64; TEMP 97.7
--- NOTE | 2023-04-25 19:24 | NUR ---
Patient resting in bed, assessed around this time, A/Ox4, denies pain or discomfort, no IV at this time, denies further needs, call light and personal items within reach.
[2023-04-25 23:15] VITALS: BP 139/73; PULSE 88; TEMP 98.4
[2023-04-26] VITALS (10 sets, daily range): BP systolic 139–150; BP diastolic 64–81; PULSE 69–85; TEMP 97.8–98.7
--- NOTE | 2023-04-26 05:00 | NUR ---
Patient sitting up in his recliner, denies further needs at this time.
[2023-04-26 06:30] LABS: CREATININE, serum 2.92 mg/dL (0.72-1.25); POTASSIUM 4.5 mmol/L (3.5-4.5)
--- NOTE | 2023-04-26 07:07 | NUR ---
Shift report received from the night nurse, MARY BETH Prado.
--- NOTE | 2023-04-26 10:20 | NUR ---
Patient sitting up in a bariatric chair by the bed side. Alert and oriented, and states that he is doing well and has no concerns at this time. Call puga within reach.
--- NOTE | 2023-04-26 11:10 | NUR ---
Industrial Accountant contacted Genevieve with [facility] to follow-up on Patient's discharge coordination. Genevieve states that the facility is still working with insurance on the insurance agreement. Genevieve states that Rocio, [facility] Cashier Assistant, and Lisa TERRY will be best points of contact after today.
--- NOTE | 2023-04-26 21:00 | NUR ---
PT IN BED, IS DROWSY, HS MEDS GIVEN. PT INCONTINENT OF URINE. ENCOURAGED TO CALL TO USE THE URINAL. LT PANNUS AND LT BREAST ONLY PINK, SKIN MUCH IMPROVED FROM ADMISSION.
[2023-04-27] VITALS (9 sets, daily range): BP systolic 136–154; BP diastolic 60–80; PULSE 72–89; TEMP 98–98.8
--- NOTE | 2023-04-27 06:30 | NUR ---
PT HAS HAD 2 COMPLETE BED CHANGES THIS SHIFT D/T URINARY INCONTINENCE. SCHEDULED AM MEDS GIVEN AT THIS TIME.
--- NOTE | 2023-04-27 07:50 | NUR ---
pt sitting up in recliner waiting for breakfast. pt a&ox4. pt denies pain. meds given and assessment complete. pt denies needs at this time. call light in reach.
[2023-04-27 09:19] LABS: CALCIUM 9.2 mg/dL (8.4-10.2); CREATININE, serum 2.8 mg/dL (0.72-1.25); POTASSIUM 4.8 mmol/L (3.5-4.5)
--- NOTE | 2023-04-27 09:53 | NUR ---
Front Window Cashier contacted [facility] to follow-up on Patient's transfer. [facility] states that they have the insurance agreement and will coordinate transport. [facility] states that they will do what they can to schedule transport today but cannot guarentee pick-up for today. SW informed nursing staff and Environmental Services Technician.
--- NOTE | 2023-04-27 14:22 | NUR ---
Appeals Coordinator was contacted by the DON of [facility] who reports that they have scheduled pickup for Patient at 1700 today. SW informed nursing staff, Hospitalist Team and Nursing Staff. MARIBEL faxed discharge orders to [facility].
--- NOTE | 2023-04-27 15:22 | NUR ---
Scorer Single met with P[facility]ient to review discharge plan of going to [facility] with transportation at 1700 today. Patient acknowleges and states to be ready to go.
--- NOTE | 2023-04-27 17:43 | NUR ---
transportation here for patient to transfer to [place]. escorted pt with belongings to vehicle.
--- NOTE | 2023-04-27 17:58 | NUR ---
called report to Arabella at [facility]. all questions answered.
== END 2023-04-27 17:30 | disposition home or self-care (01) ==
LOC: COL.ER 17:34 → SURG 20:36
PROVIDERS: Family Medicine; Physician Assistant; ADMIT Internal Medicine
DX: R53.81 Other malaise (principal); N39.0 Urinary tract infection, site not specified; D69.6 Thrombocytopenia, unspecified; D64.9 Anemia, unspecified; N18.30 Chronic kidney disease, stage 3 unspecified; N32.0 Bladder-neck obstruction; N40.0 Benign prostatic hyperplasia without lower urinary tract symptoms; F31.9 Bipolar disorder, unspecified; G47.00 Insomnia, unspecified; E66.9 Obesity, unspecified; I50.20 Unspecified systolic (congestive) heart failure; F17.210 Nicotine dependence, cigarettes, uncomplicated; Z79.899 Other long term (current) drug therapy
CPT/HCPCS: G0378; J0696; J1644; J1650

== ENCOUNTER 2023-07-21 14:25 | Emergency (ER) | payer MEDICAID ==
[~2023-07-21] VITALS: Ht 190.5 cm; Wt 227.3 kg
[~2023-07-21 14:25] MED LIST changes: +CEPHALEXIN500 M1 PO; +D3-5050000 IU PO
[2023-07-21 15:06] LABS: BASO % 0.4 % (0.0-2.0); EOS # 0.2 K/mm3 (0.0-0.7); EOS % 1.7 % (0.0-4.0); GRAN # 7.7 K/mm3 (1.4-6.5); GRAN % 75.8 % (42.2-75.2); HEMATOCRIT 44.8 % (42.0-52.0); LYMPH # 1.5 K/mm3 (1.2-3.4); LYMPH % 14.2 % (20.0-51.0); MEAN CELL VOLUME 93 fl (80.0-100.0); MEAN CORPUSCULAR HEMOGLOBIN 29 pg (27-31); MEAN CORPUSCULAR HGB CONC 31 g/dl (33.0-37.0); MEAN PLATELET VOLUME 9.2 fl (7.4-10.4); MONO # 0.8 K/mm3 (0.1-0.6); MONO % 7.4 % (1.7-9.3); PLATELET COUNT 173 K/mm3 (130-400); RED BLOOD COUNT 4.82 M/mm3 (4.20-5.60); REDCELL DISTRIBUTION WIDTH-CV 14.1 % (11.5-14.5)
[2023-07-21 15:10] LABS: COLLECTION METHOD CATHETER
[2023-07-21 15:22] LABS: ALBUMIN 3.3 gm/dL (3.4-4.8); CALCIUM 9.7 mg/dL (8.4-10.2); CREATININE, serum 2.13 mg/dL (0.72-1.25); POTASSIUM 3.9 mmol/L (3.5-4.5); TOTAL PROTEIN 7.6 gm/dL (6.2-8.1)
[2023-07-21 15:45] LABS: URINE APPEARANCE Turbid (CLEAR/HAZY); URINE BLOOD 3+ (NEGATIVE); URINE COLOR Yellow (YELLOW); URINE GLUCOSE Negative (NEGATIVE); URINE KETONE Negative (NEGATIVE); URINE NITRATE Negative (NEGATIVE); URINE PROTEIN(semi-quant) 2+ (NEGATIVE); URINE UROBILINOGEN 0.2 E.U/dL (0.2-1.0)
[2023-07-21 15:46] LABS: SQUAMOUS EPITHELIAL 0-2 /hpf (0-10); URINE BACTERIA Many /hpf (NONE SEEN); URINE RBC 20-50 /hpf (0-2)
[2023-07-21] MEDS ORDERED: BACTRIM DS 8001 TAB PO (16:39)
[2023-07-21 17:07] VITALS: BP 119/62; PULSE 96; TEMP 98.3
[2023-07-23] MEDS ORDERED: CIPRO 500MG TA500 MG PO (15:38)
== END 2023-07-21 17:04 | disposition home or self-care (01) ==
LOC: COL.ER 14:25
PROVIDERS: Emergency Medicine
DX: T83.098A Other mechanical complication of other urinary catheter, initial encounter (principal); Z87.891 Personal history of nicotine dependence; Z98.890 Other specified postprocedural states; Z96.0 Presence of urogenital implants
CPT/HCPCS: J7030